=== PATIENT | female | born 1940 | race Caucasian/White ===

== ENCOUNTER 2017-08-04 06:43 | Inpatient (IN) | payer MEDICARE, OTHER ==
[2017-08-07] MEDS ORDERED: Senna TAB PO PRN (17:53)
[2017-08-07] MEDS ORDERED: Magnesium Hydroxide LIQ* 30 ML UDC PO PRN (17:53)
[2017-08-07] MEDS ORDERED: oxyCODONE/Acetamin 5/325 MG* TAB PO PRN (18:16)
[2017-08-07] MEDS: Acetaminophen TAB* 325 MG PO PRN (18:24)
[2017-08-07] MEDS ORDERED: Metoprolol Tartrate TAB* 25 MG PO SCH (19:00)
[2017-08-07] MEDS ORDERED: Diltiazem TAB* 30 MG PO SCH (19:00)
[2017-08-07] MEDS: levETIRAcetam TAB* 500 MG PO SCH (20:09)
[2017-08-07] MEDS: Docusate CAP* 100 MG PO SCH (20:10)
[2017-08-07] MEDS: Rivaroxaban TAB(*) 15 MG PO SCH (20:10)
[2017-08-07] MEDS ORDERED: Diltiazem TAB* 30 MG PO ONE (21:00)
--- NOTE | 2017-08-07 23:02 | HP ---
HISTORY AND PHYSICAL: DATE OF ADMISSION: 08/07/17. REASON FOR ADMISSION: Right total knee replacement. HISTORY OF PRESENT ILLNESS: Aaliyah Walton is a 77-year-old female. She has a medical history significant for secondary progressive multiple sclerosis, diagnosed in the . In addition about 10 years ago, she was diagnosed with Charcot-Paula- Tooth hereditary neuropathy. She uses an AFO for her left leg. She has a history of paroxysmal atrial fibrillation as well as seizure disorder. The patient had ongoing difficulty with her right knee. She had tried and failed conservative treatments. She saw Dr. Adama Fontanez at [place]. It was decided the best course of action would be for her to have a right total knee replacement. She was admitted to [facility] on 01/07. She was taken to the operating room for a right total knee replacement under general anesthesia. A Meléndez catheter was placed. Postoperatively, the patient was started on Lovenox and then later changed back to Xarelto, which she took preop. The patient developed acute mental status changes with atrial fibrillation with the rapid ventricular response. Her heart rate was in the 150s and the patient felt dizzy and lightheaded. Urinalysis was done consistent with pyuria. The patient had a hospitalist consult. She was consulted by Cardiology, was started on Cardizem and metoprolol. She was given three days of IV ceftriaxone, but her urine cultures were negative, so that was stopped. She remains on Cardizem, metoprolol in addition to her Xarelto and amiodarone. It was recommended that the patient have a stress test. The patient, however, refused stating she had just had a stress prior to surgery. Cardiology discussed the issue at length. The patient was felt to be competent and able to refuse the stress test. She can follow up with an outpatient with her call centre supervisor. The patient was felt to have physical therapy and occupational therapy needs. She is now being admitted for inpatient rehab so that she might return to independent living. PAST MEDICAL HISTORY: Includes secondary progressive multiple sclerosis, Iqymbdp-Bsdss-Xmuin hereditary neuropathy, seizure disorder. She has a neurogenic bladder and does straight cath on her own. She has had uterine cancer in the past. She has had a total abdominal hysterectomy and oophorectomy. The patient otherwise has a history of paroxysmal atrial fibrillation as mentioned previously. PAST SURGICAL HISTORY: She has had multiple orthopedic procedures including a left total hip replacement and a left total knee replacement both in 2013. CURRENT MEDICATIONS: Include: 1. Amiodarone. 2. Lipitor. 3. Cardizem. 4. Keppra. 5. Lopressor. 6. Percocet. 7. Xarelto. 8. Effexor. ALLERGIES: The patient has allergies listed to IODINATED CONTRAST as well as MORPHINE. SOCIAL HISTORY: She is a nonsmoker, nondrinker. She lives with her in a two-story house. She has a half bath downstairs and she has a full bath upstairs, her bedroom is upstairs. REVIEW OF SYSTEMS: The patient reports no current shortness of breath or chest pain. PHYSICAL EXAMINATION VITAL SIGNS: The patient's temperature is 98.7, blood pressure is 114/56, pulse 80, respirations 16. HEENT: Her extraocular movements are intact. Tongue is midline. LUNGS: Sound clear to auscultation bilaterally. HEART: Sounds are regular. S1 and S2 are audible. ABDOMEN: Soft and nontender. EXTREMITIES: Her right knee has a wound, which is clean and dry. Some ecchymosis on the back of the right leg. Peripheral pulses are intact. NEUROLOGIC: She is awake, alert, and oriented. She has peripheral weakness in both legs because of her Cianwgm-Ywgck-Csxby worse on the left. Her right quads was also weak from her recent knee surgery. Her functional exam, the patient transfers with mini assist. ASSESSMENT: Right total knee replacement in a patient with premorbid secondary progressive multiple sclerosis. Postoperatively, she developed acute confusion, atrial fibrillation with rapid ventricular response, which responded to beta blockers and Cardizem. She converted spontaneously to normal sinus rhythm. PLAN: Integrate her into a comprehensive and therapeutic rehab program with the following goals: 1. Physical Therapy will work with the patient. They are going to work on functional transfer training, ambulation training with a walker. 2. Occupational Therapy will see the patient, work on her activities of daily living including toileting and toilet transfers. 3. Xarelto for atrial fibrillation as well as DVT prophylaxis. 4. For her atrial fibrillation, we will continue Xarelto as well as amiodarone. In addition for now, we will continue her beta kalli and Cardizem. 5. Adequate analgesia. 6. Her bowels will be regulated. 7. For her neurogenic bladder, she is going to manage it by straight cathing herself. 8. For seizure disorder, we will continue Keppra. 9. Family training as appropriate. 10. emergency services director will be closely involved to make sure that any services and equipment the patient requires are in place prior to discharge. 11. Home with appropriate services. ESTIMATED LENGTH OF STAY: 7 to 10 days. [id number]/[facility] #: [id number] THANG
[2017-08-08] MEDS: Diltiazem TAB* 30 MG PO SCH ×4 (00:59→17:34)
[2017-08-08] MEDS: Metoprolol Tartrate TAB* 25 MG PO SCH ×4 (01:00→17:34)
[2017-08-08] MEDS: Venlafaxine EXT RELEASE CAP* 75 MG PO SCH (08:59)
[2017-08-08] MEDS: levETIRAcetam TAB* 500 MG PO SCH ×2 (08:59→20:10)
[2017-08-08] MEDS: Rivaroxaban TAB(*) 15 MG PO SCH (08:59)
[2017-08-08] MEDS ORDERED: Diltiazem CD CAP* 180 MG PO SCH (09:00)
[2017-08-08] MEDS: Amiodarone TAB* 200 MG PO SCH (09:00)
[2017-08-08] MEDS ORDERED: Diltiazem CD CAP* 120 MG PO SCH (09:00)
[2017-08-08] MEDS: Docusate CAP* 100 MG PO SCH ×2 (09:00→20:18)
[2017-08-08] MEDS: Acetaminophen TAB* 325 MG PO PRN ×2 (11:30→20:10)
--- NOTE | 2017-08-08 12:30 | PMRUTEAM ---
PMRU: Team Meeting Current Status: Nursing: Current Status Skin Deviations [Right Knee] Incision Skin Deviation Description [ drsg intact Right Knee] Bladder Current Status straight cath independently Bowel Current Status bm x3 today.colace held per patient request Nutrition Current Status appetite good Medication Current Status no requests for pain meds thus far this shift. Physical Therapy: Current Status Bed Mobility Assistance Independent Transfer Moblility Assistance Contact guard Ambulation Assistance Contact Guard Ambulation Assistive Devices Rolling Walker 100 feet Stairs Assistance contact guard Stairs Recommended Devices One Rail Number of Stairs 4 Occupational Therapy: Current Status Upper Body Dressing Supervision Lower Body Dressing Min Assist Bathing Min Assist Toileting Contact Guard Assist Toilet Transfer Supervision Shower Transfer Contact Guard Assist Eating Independent Social Work: Current Status Discharge Plan return home with ongoing therapy and family support Potential for Family Training pt's is involved and supportive Anticipated Discharge Home Destination Discharge With family support and continued P.T. Goals: Occupational Therapy: Initial Goals Goals to be Completed in (Days 5 days ) Upper Body Bathing Routine Modified Independent with Lower Body Bathing Routine Modified Independent with Upper Body Dressing Routine Independent Lower Body Dressing Routine Independent Toilet Hygeine and Clothing Modified Independent with Management Routine Toilet Transfer Routine Modified Independent with Tub Transfer Routine Modified Independent with Functional Transfers for ADL Modified Independent with Grooming Routine Independent Feeding Routine Independent Light Housekeeping Tasks Modified Independent with Light Housekeeping Tasks cooking task Assistive Devices Nursing: Goals Bladder Goal independent Bowel Goal independent Nutrition Goal 100% of all meals eaten Medication Goal independent Social Work: Goals Discharge Plan return home with ongoing therapy and family support Potential for Family Training pt's is involved and supportive Anticipated Discharge Home Destination Discharge With family support and continued P.T. Medicine Note: Length of Stay: 1 week Anticipated Discharge Destination: Home Tentative Discharge Date: 7 days Discharged to: home
--- NOTE | 2017-08-08 17:27 | PN ---
Progress Note Date of Service: 08/08/17 Note: REINIER JAMES was visited. Therapy notes read and reviewed. She was discussed in interdisciplinary team rounds. She has some balance difficulties and some problems as a result of decreased sensation in her legs. I verified with the patient that she normally takes Xarelto, 15 mg daily, will revert to this. She is in NSR and will stop the Cardizem, continue Lopressor and Amio. Current Medications: Active Medications Generic Name Dose Route Start Last Admin Trade Name Freq PRN Reason Stop Dose Admin Acetaminophen 650 mg 08/07/17 17:53 08/08/17 11:30 Tylenol Tab* PO 650 mg Q6H PRN Administration FEVER/PAIN Amiodarone HCl 100 mg 08/08/17 09:00 08/08/17 09:00 Cordarone Tab* PO 100 mg DAILY WES Administration Atorvastatin Calcium 10 mg 08/08/17 17:00 Lipitor* PO 1700 WES Diltiazem HCl 30 mg 08/08/17 11:39 08/08/17 12:45 Cardizem Tab* PO 08/09/17 01:00 30 mg 0000,0600,1200,1800 WES Administration Docusate Sodium 100 mg 08/07/17 21:00 08/08/17 09:00 Colace Cap* PO Not Given BID WES Levetiracetam 1,000 mg 08/07/17 21:00 08/08/17 08:59 Keppra Tab* PO 1,000 mg BID WES Administration Magnesium Hydroxide 30 ml 08/07/17 17:53 Milk Of Magnesia Liq* PO Q6H PRN CONSTIPATION Metoprolol Tartrate 12.5 mg 08/08/17 00:10 08/08/17 12:46 Lopressor Tab* PO 12.5 mg 0000,0600,1200,1800 WES Administration Oxycodone/Acetaminophen 1 tab 08/07/17 18:16 Percocet 5/325 Tab* PO Q4H PRN PAIN - MODERATE TO SEVERE Rivaroxaban 15 mg 08/09/17 09:00 Xarelto(*) PO DAILY WES Senna 2 tab 08/07/17 17:53 Senokot Tab* PO BEDTIME PRN CONSTIPATION Venlafaxine HCl 75 mg 08/08/17 09:00 08/08/17 08:59 Effexor Xr Cap* PO 75 mg DAILY WES Administration Vital Signs: Vital Signs Temp Pulse Resp BP Pulse Ox 98.1 F 64 20 103/48 96 08/08/17 15:39 08/08/17 15:39 08/08/17 15:39 08/08/17 15:39 08/08/17 15:39 Exam: LUNGS: Clear bilaterally HEART: reg rhythm ABDOMEN: Soft, + BS EXTREMITIES: right knee dressing C/D/I NEUROLOGIC: Decreased sensation in lower extremities. Decreased PF/DF Assessment/Plan: 1. Right total knee replacement: PT/OT 2. Secondary Progressive MS: Stable 3. Paroxysmal A Fib: In NSR. Xarelto/Amio/Lopressor. EKG in AM. D/C Cardizem 4. DVT Prophylaxis: Xarelto 5. CMT: AFO for left leg 6. Seizures: Keppra 7. Advanced Directives: Full Code 08/08/17 17:27
[2017-08-08] MEDS: Atorvastatin* 10 MG TAB PO SCH (17:34)
[2017-08-09] MEDS: Metoprolol Tartrate TAB* 25 MG PO SCH ×5 (00:01→23:49)
[2017-08-09] MEDS: Diltiazem TAB* 30 MG PO SCH (00:02)
[2017-08-09 06:58] LABS: ABS Basophils 0.1 10^3/ul (0-0.2); ABS Eosinophils 0.2 10^3/ul (0-0.6); ABS Lymphocytes 1.1 10^3/ul (1.0-4.8); ABS Monocytes 0.6 10^3/ul (0-0.8); ABS Neutrophils 3.1 10^3/ul (1.5-7.7); ABS Nucleated RBC 0 10^3/ul; Eosinophil % 3.8 % (0-6); Hematocrit 29 % (35-47); Hemoglobin 9.8 g/dl (12.0-16.0); Lymphocyte % 21.9 % (25-47); Mean Corpuscular HGB Conc 34 g/dl (31-36); Mean Corpuscular Hemoglobin 31 pg (27-31); Mean Corpuscular Volume 91 fL (80-97); Mean Platelet Volume 7.1 um3 (7.4-10.4); Nucleated Red Blood Cells % 0; Platelet Count 358 10^3/ul (150-450); Red Blood Count 3.14 10^6/ul (4.00-5.40); Red Cell Distribution Width 15 % (10.5-15); White Blood Count 5.1 10^3/ul (3.5-10.8)
[2017-08-09 07:17] LABS: EGFR Non-African American 82.1 (>60)
[2017-08-09] MEDS: Docusate CAP* 100 MG PO SCH ×2 (09:09→20:00)
[2017-08-09] MEDS: Amiodarone TAB* 200 MG PO SCH (09:09)
[2017-08-09] MEDS: levETIRAcetam TAB* 500 MG PO SCH ×2 (09:11→20:01)
[2017-08-09] MEDS: Rivaroxaban TAB(*) 15 MG PO SCH (09:13)
[2017-08-09] MEDS: Venlafaxine EXT RELEASE CAP* 75 MG PO SCH (09:13)
[2017-08-09] MEDS: Acetaminophen TAB* 325 MG PO PRN ×2 (10:22→21:43)
[2017-08-09] MEDS: Atorvastatin* 10 MG TAB PO SCH (17:44)
--- NOTE | 2017-08-09 19:35 | PN ---
Progress Note Date of Service: 08/09/17 Note: REINIER JAMES was visited. Therapy notes read and reviewed. OT reported some concerns with memory. Noted she scored 15 on BIMS. Will follow. She says usually pays bills, but she does write for some. She does most of cooking. Labs ok. Current Medications: Active Medications Generic Name Dose Route Start Last Admin Trade Name Freq PRN Reason Stop Dose Admin Acetaminophen 650 mg 08/07/17 17:53 08/09/17 10:22 Tylenol Tab* PO 650 mg Q6H PRN Administration FEVER/PAIN Amiodarone HCl 100 mg 08/08/17 09:00 08/09/17 09:09 Cordarone Tab* PO 100 mg DAILY WES Administration Atorvastatin Calcium 10 mg 08/08/17 17:00 08/09/17 17:44 Lipitor* PO 10 mg 1700 WES Administration Docusate Sodium 100 mg 08/07/17 21:00 08/09/17 09:09 Colace Cap* PO Not Given BID WES Levetiracetam 1,000 mg 08/07/17 21:00 08/09/17 09:11 Keppra Tab* PO 1,000 mg BID WES Administration Magnesium Hydroxide 30 ml 08/07/17 17:53 Milk Of Magnesia Liq* PO Q6H PRN CONSTIPATION Metoprolol Tartrate 12.5 mg 08/08/17 00:10 08/09/17 17:46 Lopressor Tab* PO 12.5 mg 0000,0600,1200,1800 WES Administration Oxycodone/Acetaminophen 1 tab 08/07/17 18:16 Percocet 5/325 Tab* PO Q4H PRN PAIN - MODERATE TO SEVERE Rivaroxaban 15 mg 08/09/17 09:00 08/09/17 09:13 Xarelto(*) PO 15 mg DAILY WES Administration Senna 2 tab 08/07/17 17:53 Senokot Tab* PO BEDTIME PRN CONSTIPATION Venlafaxine HCl 75 mg 08/08/17 09:00 08/09/17 09:13 Effexor Xr Cap* PO 75 mg DAILY WES Administration Vital Signs: Vital Signs Temp Pulse Resp BP Pulse Ox 99.7 F 86 22 118/61 97 08/09/17 16:36 08/09/17 16:36 08/09/17 16:36 08/09/17 16:36 08/09/17 19:15 Lab Results: Laboratory Results - last 24 hr 08/09/17 08/09/17 06:41 06:41 WBC 5.1 RBC 3.14 L Hgb 9.8 L Hct 29 L MCV 91 MCH 31 MCHC 34 RDW 15 Plt Count 358 MPV 7.1 L Neut % (Auto) 61.2 Lymph % (Auto) 21.9 L [place] % (Auto) 11.9 H Eos % (Auto) 3.8 Baso % (Auto) 1.2 Absolute Neuts (auto) 3.1 Absolute Lymphs (auto) 1.1 Absolute Monos (auto) 0.6 Absolute Eos (auto) 0.2 Absolute Basos (auto) 0.1 Absolute Nucleated RBC 0 Nucleated RBC % 0 Sodium 140 Potassium 4.0 Chloride 106 Carbon Dioxide 28 Anion Gap 6 BUN 19 Creatinine 0.69 Est GFR ( Amer) 105.5 Est GFR (Non-Af Amer) 82.1 BUN/Creatinine Ratio 27.5 H Glucose 106 H Calcium 8.9 Total Bilirubin 0.60 AST 24 ALT 30 Alkaline Phosphatase 99 Total Protein 6.0 L Albumin 3.2 Globulin 2.8 Albumin/Globulin Ratio 1.1 Exam: LUNGS: Clear bilaterally HEART: reg rhythm ABDOMEN: Soft, + BS EXTREMITIES: right knee dressing C/D/I NEUROLOGIC: Decreased sensation in lower extremities. Decreased PF/DF Assessment/Plan: 1. Right total knee replacement: PT/OT 2. Secondary Progressive MS: Stable 3. Paroxysmal A Fib: In NSR. Xarelto/Amio/Lopressor. EKG showed reg rhythm 4. DVT Prophylaxis: Xarelto 5. CMT: AFO for left leg 6. Seizures: Keppra 7. Advanced Directives: Full Code 08/09/17 19:35
[2017-08-10] MEDS: Metoprolol Tartrate TAB* 25 MG PO SCH ×3 (05:59→16:49)
[2017-08-10] MEDS: Amiodarone TAB* 200 MG PO SCH (09:08)
[2017-08-10] MEDS: Rivaroxaban TAB(*) 15 MG PO SCH (09:10)
[2017-08-10] MEDS: levETIRAcetam TAB* 500 MG PO SCH ×2 (09:10→19:37)
[2017-08-10] MEDS: Venlafaxine EXT RELEASE CAP* 75 MG PO SCH (09:11)
[2017-08-10] MEDS: Acetaminophen TAB* 325 MG PO PRN ×2 (09:12→19:36)
[2017-08-10] MEDS: Docusate CAP* 100 MG PO SCH ×2 (09:13→19:37)
--- NOTE | 2017-08-10 15:44 | PN ---
Progress Note Date of Service: 08/10/17 Note: REINIER JAMES was visited. Therapy notes read and reviewed. Some back pain earlier, but doing better now. Moving fairly well. Current Medications: Active Medications Generic Name Dose Route Start Last Admin Trade Name Freq PRN Reason Stop Dose Admin Acetaminophen 650 mg 08/07/17 17:53 08/10/17 09:12 Tylenol Tab* PO 650 mg Q6H PRN Administration FEVER/PAIN Amiodarone HCl 100 mg 08/08/17 09:00 08/10/17 09:08 Cordarone Tab* PO 100 mg DAILY WES Administration Atorvastatin Calcium 10 mg 08/08/17 17:00 08/09/17 17:44 Lipitor* PO 10 mg 1700 WES Administration Docusate Sodium 100 mg 08/07/17 21:00 08/10/17 09:13 Colace Cap* PO Not Given BID WES Levetiracetam 1,000 mg 08/07/17 21:00 08/10/17 09:10 Keppra Tab* PO 1,000 mg BID WES Administration Magnesium Hydroxide 30 ml 08/07/17 17:53 Milk Of Magnesia Liq* PO Q6H PRN CONSTIPATION Metoprolol Tartrate 12.5 mg 08/08/17 00:10 08/10/17 12:38 Lopressor Tab* PO 12.5 mg 0000,0600,1200,1800 WES Administration Oxycodone/Acetaminophen 1 tab 08/07/17 18:16 Percocet 5/325 Tab* PO Q4H PRN PAIN - MODERATE TO SEVERE Rivaroxaban 15 mg 08/09/17 09:00 08/10/17 09:10 Xarelto(*) PO 15 mg DAILY WES Administration Senna 2 tab 08/07/17 17:53 Senokot Tab* PO BEDTIME PRN CONSTIPATION Venlafaxine HCl 75 mg 08/08/17 09:00 08/10/17 09:11 Effexor Xr Cap* PO 75 mg DAILY WES Administration Vital Signs: Vital Signs Temp Pulse Resp BP Pulse Ox 99.6 F 67 20 107/69 97 08/10/17 05:50 08/10/17 05:50 08/10/17 05:50 08/10/17 05:50 08/10/17 05:50 Exam: LUNGS: Clear bilaterally HEART: reg rhythm ABDOMEN: Soft, + BS EXTREMITIES: right knee dressing C/D/I NEUROLOGIC: Decreased sensation in lower extremities. Decreased PF/DF Assessment/Plan: 1. Right total knee replacement: PT/OT 2. Secondary Progressive MS: Stable 3. Paroxysmal A Fib: In NSR. Xarelto/Amio/Lopressor. EKG showed reg rhythm 4. DVT Prophylaxis: Xarelto 5. CMT: AFO for left leg 6. Seizures: Keppra 7. Advanced Directives: Full Code 08/10/17 15:45
[2017-08-10] MEDS: Atorvastatin* 10 MG TAB PO SCH (16:49)
[2017-08-11] MEDS: Metoprolol Tartrate TAB* 25 MG PO SCH ×4 (00:16→17:48)
[2017-08-11] MEDS: Docusate CAP* 100 MG PO SCH ×2 (09:28→20:27)
[2017-08-11] MEDS: levETIRAcetam TAB* 500 MG PO SCH ×2 (09:28→20:27)
[2017-08-11] MEDS: Rivaroxaban TAB(*) 15 MG PO SCH (09:28)
[2017-08-11] MEDS: Venlafaxine EXT RELEASE CAP* 75 MG PO SCH (09:28)
[2017-08-11] MEDS: Amiodarone TAB* 200 MG PO SCH (09:28)
[2017-08-11] MEDS: Acetaminophen TAB* 325 MG PO PRN (10:22)
--- NOTE | 2017-08-11 16:47 | PN ---
Progress Note Date of Service: 08/11/17 Note: REINIER JAMES was visited. Therapy notes read and reviewed. She was observed ambulating and somewhat unsteady. I suspect she is slightly unsteady at baseline. Current Medications: Active Medications Generic Name Dose Route Start Last Admin Trade Name Freq PRN Reason Stop Dose Admin Acetaminophen 650 mg 08/07/17 17:53 08/11/17 10:22 Tylenol Tab* PO 650 mg Q6H PRN Administration FEVER/PAIN Amiodarone HCl 100 mg 08/08/17 09:00 08/11/17 09:28 Cordarone Tab* PO 100 mg DAILY WES Administration Atorvastatin Calcium 10 mg 08/08/17 17:00 08/10/17 16:49 Lipitor* PO 10 mg 1700 WES Administration Docusate Sodium 100 mg 08/07/17 21:00 08/11/17 09:28 Colace Cap* PO 100 mg BID WES Administration Levetiracetam 1,000 mg 08/07/17 21:00 08/11/17 09:28 Keppra Tab* PO 1,000 mg BID WES Administration Magnesium Hydroxide 30 ml 08/07/17 17:53 Milk Of Magnesia Liq* PO Q6H PRN CONSTIPATION Metoprolol Tartrate 12.5 mg 08/08/17 00:10 08/11/17 12:45 Lopressor Tab* PO 12.5 mg 0000,0600,1200,1800 WES Administration Oxycodone/Acetaminophen 1 tab 08/07/17 18:16 Percocet 5/325 Tab* PO Q4H PRN PAIN - MODERATE TO SEVERE Rivaroxaban 15 mg 08/09/17 09:00 08/11/17 09:28 Xarelto(*) PO 15 mg DAILY WES Administration Senna 2 tab 08/07/17 17:53 Senokot Tab* PO BEDTIME PRN CONSTIPATION Venlafaxine HCl 75 mg 08/08/17 09:00 08/11/17 09:28 Effexor Xr Cap* PO 75 mg DAILY WES Administration Vital Signs: Vital Signs Temp Pulse Resp BP Pulse Ox 98.4 F 65 20 119/60 95 08/11/17 16:12 08/11/17 16:12 08/11/17 16:12 08/11/17 16:12 08/11/17 16:12 Exam: LUNGS: Clear bilaterally HEART: reg rhythm ABDOMEN: Soft, + BS EXTREMITIES: right knee dressing C/D/I NEUROLOGIC: Decreased sensation in lower extremities. Decreased PF/DF Assessment/Plan: 1. Right total knee replacement: PT/OT 2. Secondary Progressive MS: Stable 3. Paroxysmal A Fib: In NSR. Xarelto/Amio/Lopressor. EKG showed reg rhythm 4. DVT Prophylaxis: Xarelto 5. CMT: AFO for left leg 6. Seizures: Keppra 7. Advanced Directives: Full Code 08/11/17 16:47
[2017-08-11] MEDS: Atorvastatin* 10 MG TAB PO SCH (17:48)
[2017-08-12] MEDS: Metoprolol Tartrate TAB* 25 MG PO SCH ×4 (00:07→17:38)
[2017-08-12] MEDS: Acetaminophen TAB* 325 MG PO PRN ×2 (08:49→14:45)
[2017-08-12] MEDS: Amiodarone TAB* 200 MG PO SCH (08:58)
[2017-08-12] MEDS: Docusate CAP* 100 MG PO SCH ×2 (08:59→20:29)
[2017-08-12] MEDS: Rivaroxaban TAB(*) 15 MG PO SCH (08:59)
[2017-08-12] MEDS: levETIRAcetam TAB* 500 MG PO SCH ×2 (08:59→20:28)
[2017-08-12] MEDS: Venlafaxine EXT RELEASE CAP* 75 MG PO SCH (09:00)
--- NOTE | 2017-08-12 16:20 | PN ---
Progress Note Date of Service: 08/12/17 Note: REINIER JAMES was visited. Nursing and therapy notes read and reviewed. She thinks she may have flipped into A-fib after doing the stairs. She sat down in a chair and rested and spontaneously converted. Current Medications: Active Medications Generic Name Dose Route Start Last Admin Trade Name Freq PRN Reason Stop Dose Admin Acetaminophen 650 mg 08/07/17 17:53 08/12/17 14:45 Tylenol Tab* PO 650 mg Q6H PRN Administration FEVER/PAIN Amiodarone HCl 100 mg 08/08/17 09:00 08/12/17 08:58 Cordarone Tab* PO 100 mg DAILY WES Administration Atorvastatin Calcium 10 mg 08/08/17 17:00 08/11/17 17:48 Lipitor* PO 10 mg 1700 WES Administration Docusate Sodium 100 mg 08/07/17 21:00 08/12/17 08:59 Colace Cap* PO 100 mg BID WES Administration Levetiracetam 1,000 mg 08/07/17 21:00 08/12/17 08:59 Keppra Tab* PO 1,000 mg BID WES Administration Magnesium Hydroxide 30 ml 08/07/17 17:53 Milk Of Magnesia Liq* PO Q6H PRN CONSTIPATION Metoprolol Tartrate 12.5 mg 08/08/17 00:10 08/12/17 12:50 Lopressor Tab* PO 12.5 mg 0000,0600,1200,1800 WES Administration Oxycodone/Acetaminophen 1 tab 08/07/17 18:16 Percocet 5/325 Tab* PO Q4H PRN PAIN - MODERATE TO SEVERE Rivaroxaban 15 mg 08/09/17 09:00 08/12/17 08:59 Xarelto(*) PO 15 mg DAILY WES Administration Senna 2 tab 08/07/17 17:53 Senokot Tab* PO BEDTIME PRN CONSTIPATION Venlafaxine HCl 75 mg 08/08/17 09:00 08/12/17 09:00 Effexor Xr Cap* PO 75 mg DAILY WES Administration Vital Signs: Vital Signs Temp Pulse Resp BP Pulse Ox 98.5 F 66 16 106/45 96 08/12/17 15:34 08/12/17 15:34 08/12/17 15:34 08/12/17 15:34 08/12/17 15:34 Exam: LUNGS: Clear bilaterally HEART: reg rhythm ABDOMEN: Soft, + BS EXTREMITIES: right knee dressing C/D/I NEUROLOGIC: Decreased sensation in lower extremities. Decreased PF/DF Assessment/Plan: 1. Right total knee replacement: PT/OT 2. Secondary Progressive MS: Stable 3. Paroxysmal A Fib: In NSR. Xarelto/Amio/Lopressor. EKG showed reg rhythm. She refused stress testing at [facility] 4. DVT Prophylaxis: Xarelto 5. CMT: AFO for left leg 6. Seizures: Keppra 7. Advanced Directives: Full Code 08/12/17 16:20
[2017-08-12] MEDS: Atorvastatin* 10 MG TAB PO SCH (17:38)
[2017-08-13] MEDS: Metoprolol Tartrate TAB* 25 MG PO SCH ×4 (01:08→20:12)
[2017-08-13] MEDS: Amiodarone TAB* 200 MG PO SCH (09:28)
[2017-08-13] MEDS: Docusate CAP* 100 MG PO SCH ×2 (09:28→20:06)
[2017-08-13] MEDS: Venlafaxine EXT RELEASE CAP* 75 MG PO SCH (09:29)
[2017-08-13] MEDS: Rivaroxaban TAB(*) 15 MG PO SCH (09:29)
[2017-08-13] MEDS: levETIRAcetam TAB* 500 MG PO SCH ×2 (09:29→20:12)
--- NOTE | 2017-08-13 15:07 | PN ---
Progress Note Date of Service: 08/13/17 Note: REINIER JAMES was visited. Nursing notes read and reviewed. She is ready for discharge in am. No further episodes of palpitations or irregular heart beat. Current Medications: Active Medications Generic Name Dose Route Start Last Admin Trade Name Freq PRN Reason Stop Dose Admin Acetaminophen 650 mg 08/07/17 17:53 08/12/17 14:45 Tylenol Tab* PO 650 mg Q6H PRN Administration FEVER/PAIN Amiodarone HCl 100 mg 08/08/17 09:00 08/13/17 09:28 Cordarone Tab* PO 100 mg DAILY WES Administration Atorvastatin Calcium 10 mg 08/08/17 17:00 08/12/17 17:38 Lipitor* PO 10 mg 1700 WES Administration Docusate Sodium 100 mg 08/07/17 21:00 08/13/17 09:28 Colace Cap* PO 100 mg BID WES Administration Levetiracetam 1,000 mg 08/07/17 21:00 08/13/17 09:29 Keppra Tab* PO 1,000 mg BID WES Administration Magnesium Hydroxide 30 ml 08/07/17 17:53 Milk Of Magnesia Liq* PO Q6H PRN CONSTIPATION Metoprolol Tartrate 25 mg 08/13/17 21:00 Lopressor Tab* PO BID WES Oxycodone/Acetaminophen 1 tab 08/07/17 18:16 Percocet 5/325 Tab* PO Q4H PRN PAIN - MODERATE TO SEVERE Rivaroxaban 15 mg 08/09/17 09:00 08/13/17 09:29 Xarelto(*) PO 15 mg DAILY WES Administration Senna 2 tab 08/07/17 17:53 Senokot Tab* PO BEDTIME PRN CONSTIPATION Venlafaxine HCl 75 mg 08/08/17 09:00 08/13/17 09:29 Effexor Xr Cap* PO 75 mg DAILY WES Administration Vital Signs: Vital Signs Temp Pulse Resp BP Pulse Ox 98.5 F 67 18 124/58 97 08/13/17 06:13 08/13/17 06:13 08/13/17 06:13 08/13/17 06:13 08/13/17 06:13 Exam: LUNGS: Clear bilaterally HEART: reg rhythm ABDOMEN: Soft, + BS EXTREMITIES: right knee dressing C/D/I NEUROLOGIC: Decreased sensation in lower extremities. Decreased PF/DF Assessment/Plan: 1. Right total knee replacement: PT/OT 2. Secondary Progressive MS: Stable 3. Paroxysmal A Fib: In NSR. Xarelto/Amio/Lopressor. EKG showed reg rhythm. She refused stress testing at [facility] 4. DVT Prophylaxis: Xarelto 5. CMT: AFO for left leg 6. Seizures: Keppra 7. Advanced Directives: Full Code 08/13/17 15:08
[2017-08-13] MEDS: Atorvastatin* 10 MG TAB PO SCH (17:23)
[2017-08-14 07:04] VITALS: BP 134/67
[2017-08-14] MEDS: Amiodarone TAB* 200 MG PO SCH (07:41)
[2017-08-14] MEDS: Venlafaxine EXT RELEASE CAP* 75 MG PO SCH (07:41)
[2017-08-14] MEDS: levETIRAcetam TAB* 500 MG PO SCH (07:42)
[2017-08-14] MEDS: Rivaroxaban TAB(*) 15 MG PO SCH (07:42)
[2017-08-14] MEDS: Metoprolol Tartrate TAB* 25 MG PO SCH (07:42)
[2017-08-14] MEDS: Docusate CAP* 100 MG PO SCH (07:45)
--- NOTE | 2017-08-17 09:38 | DS ---
CC: Dr. Lashon Rosa MD * DISCHARGE SUMMARY: DATE OF ADMISSION: 08/07/17 DATE OF DISCHARGE: 08/14/17 DISCHARGE DIAGNOSES: 1. Right total knee replacement. 2. Secondary progressive multiple sclerosis. 3. Oiahbyj-Tkqai-Ccedo hereditary neuropathy. 4. Seizure disorder. 5. Neurogenic bladder. 6. Uterine cancer. 7. Paroxysmal atrial fibrillation. HISTORY OF ILLNESS AND HOSPITAL COURSE: For complete history of the events leading up to her rehab stay, please see the history and physical dictated by me on 08/07/17. While on the rehab unit, the patient remained fairly stable. She did have 1 episode, where she felt she went back into atrial fibrillation, but when the nurse came in, she had converted spontaneously back to normal sinus rhythm. Her Cardizem was discontinued because it was felt not to be needed. She remained on Lopressor. In addition, she was on amiodarone. Her Xarelto dose was adjusted to her home dose of 15 mg once a day. Her wound healed well while on the rehab unit. The patient was able to catheterize herself in order to manage her neurogenic bladder. Otherwise, she was medically stable. The patient was seen by both Physical and Occupational Therapy and made good gains with both disciplines. With physical therapy at the time of admission, the patient required contact guard to a transfer contact guard to ambulate with occupational therapy. At the time of admission, the patient required supervision for upper body dressing, min-assist for lower body dressing, contact guard for toileting, supervision for toilet transfers, min- assist for bathing. By the time of discharge, the patient was independent in transfers, independent ambulating 150 feet, supervision with stairs, independent bathing and dressing, independent toileting and toilet transfers. The patient was discharged home on 08/14/17. DISCHARGE DIET: Regular. DISCHARGE MEDICATIONS: 1. Amiodarone 100 mg daily. 2. Lipitor 10 mg daily. 3. Keppra 1000 mg twice daily. 4. Lopressor 25 mg twice daily. 5. Xarelto 15 mg daily. 6. Effexor XR 75 mg daily. SERVICES AFTER DISCHARGE: [facility] She will have outpatient physical therapy, follow up with Dr. Adama Fontanez on 08/17/17 at 10 :[address] as well [address] Rosa. [id number]/[facility] #: [id number] THANG
== END 2017-08-14 14:27 | disposition home or self-care (01) | DRG 561 ==
LOC: PMRU 08-07 17:28
PROVIDERS: ADMIT Physical Medicine & Rehabilitation; ATTEND Physical Medicine & Rehabilitation
PROC: F07Z5ZZ Bed Mobility Treatment (ICD-10-PCS; principal; 2017-08-07)
PROC: F07Z9ZZ Gait Training/Functional Ambulation Treatment (ICD-10-PCS; 2017-08-07)
PROC: F07Z8ZZ Transfer Training Treatment (ICD-10-PCS; 2017-08-07)
PROC: F08Z0ZZ Bathing/Showering Techniques Treatment (ICD-10-PCS; 2017-08-07)
PROC: F08Z1ZZ Dressing Techniques Treatment (ICD-10-PCS; 2017-08-07)
PROC: F08Z3ZZ Feeding/Eating Treatment (ICD-10-PCS; 2017-08-07)
DX: Z47.1 Aftercare following joint replacement surgery (principal); Z96.651 Presence of right artificial knee joint; G35 Multiple sclerosis; G60.0 Hereditary motor and sensory neuropathy; I48.0 Paroxysmal atrial fibrillation; G40.909 Epilepsy, unspecified, not intractable, without status epilepticus; N31.9 Neuromuscular dysfunction of bladder, unspecified; Z85.42 Personal history of malignant neoplasm of other parts of uterus; Z79.899 Other long term (current) drug therapy; Z88.5 Allergy status to narcotic agent; Z91.041 Radiographic dye allergy status
CPT/HCPCS: 36415; 80053; 85025; 93005; A9270-GY; G0515-GO

== ENCOUNTER 2019-03-16 16:26 | Emergency (ER) | payer MEDICARE, OTHER ==
--- OUTSIDE RECORDS SUMMARY | 2019-03-16 17:03 | XMS REPORT | Summary of Care ---
:1940 Author Organization [facility] Address [address] [place] [address] Care Team Providers Name Role Phone Lashon Rosa MD Primary Care Provider Reason for Visit Reason Comments ED To ED Transfer Fall Encounter Details Date Type Department Care Team Description 03/04/2019 Emergency EMERGENCY DEPARTMENT Ministerio Qiu Urinary tract JENNIFER Guerrero MD infection without [address] hematuria, [place] [address] [place] [address] unspecified (Primary [phone] Dx) Allergies No Known Allergiesdocumented as of this encounter (statuses as of 03/04/2019) Medications Medication Sig Dispensed Refills Start Date End Date Status Venlafaxine HCl ER 75 Take 75 mg by 0 08/02/2018 Active MG Oral Capsule mouth daily Extended Release 24 Hour (EFFEXOR-XR) LEVOTHYROXINE SODIUM Take 1 tablet by 0 Active PO mouth Aspirin Adult Low Take 81 mg by 0 09/07/2018 Active Strength 81 MG Oral mouth daily Tablet Delayed Release Atorvastatin Calcium TAKE ONE TABLET 0 04/27/2016 Active 10 MG Oral Tablet BY MOUTH DAILY (LIPITOR) levETIRAcetam 500 MG TAKE TWO TABLETS 0 11/21/2018 Active Oral Tablet (KEPPRA) BY MOUTH IN THE MORNING AND ONE TABLET IN THE EVENING Levothyroxine Sodium TAKE ONE TABLET 0 12/18/2018 Active 25 MCG Oral Tablet BY MOUTH EVERY (SYNTHROID, MORNING BEFORE LEVOTHROID) BREAKFAST Oxybutynin Chloride 5 TK 1 T PO QHS 0 02/06/2019 Active MG Oral Tablet (DITROPAN) Amiodarone HCl 200 MG Take 200 mg by 0 02/15/2019 Active Oral Tablet mouth daily (PACERONE) levETIRAcetam 500 MG Take 1,000 mg by 0 Active Oral Tablet (KEPPRA) mouth Risedronate Sodium TAKE ONE TABLET 0 02/04/2019 Active 150 MG Oral Tablet BY MOUTH EVERY (ACTONEL) THIRTY DAYS Cephalexin 500 MG Take 1 capsule 14 capsule 0 03/04/2019 03/11/2019 Active Oral Capsule (KEFLEX) by mouth Two Times Daily for 7 days documented as of this encounter (statuses as of 03/04/2019) Active Problems Not on filedocumented as of this encounter (statuses as of 03/04/2019) Social History Tobacco Use Types Packs/Day Years Used Date Former Smoker Alcohol Use Drinks/Week oz/Week Comments Yes Sex Assigned at Date Recorded Not on file Job Start Date Occupation Industry Not on file Not on file Not on file Travel History Travel Start Travel End No recent travel history available. documented as of this encounter Last Filed Vital Signs Vital Sign Reading Time Taken Comments Blood Pressure 137/83 03/04/2019 2:30 AM EST Pulse 63 03/04/2019 2:30 AM EST Temperature 37 03/04/2019 2:30 AM EST C (98.6 F) Respiratory Rate 19 03/04/2019 2:30 AM EST Oxygen Saturation 97% 03/04/2019 2:30 AM EST Inhaled Oxygen Concentration - - Weight 59 kg (130 lb) 03/04/2019 12:20 AM EST Height 172.7 cm (5' 8") 03/04/2019 12:20 AM EST Body Mass Index 19.77 03/04/2019 12:20 AM EST documented in this encounter Discharge Instructions AttachmentsThe following attachments cannot be sent through Care Everywhere.Urinary Tract Infections in Women ([place])documented in this encounter Plan of Treatment Name Type Priority Associated Diagnoses Date/Time EKG 12 lead ECG STAT 03/04/2019 2:08 AM EST documented as of this encounter Procedures Procedure Name Priority Date/Time Associated Comments Diagnosis POCT ISTAT TROPONIN Routine 03/04/2019 2:42 Results for this AM EST procedure are in the results section. EKG ED PHYSICIAN Routine 03/04/2019 2:17 Results for this INTERPRETATION AM EST procedure are in the results section. EKG 12-LEAD - CMAXX 03/04/2019 2:08 REPORT AM EST documented in this encounter Results POCT i-STAT Troponin (03/04/2019 2:42 AM EST) i-STAT Troponin I 0.00 0.00 - 0.08 ng/mL [facility] POC Specimen Whole Blood Performing Organization Address City/[facility] Phone Number POINT OF CARE TEST [address] POC [address] [place] [address] 1ED EKG Interpretation (03/04/2019 2:17 AM EST) Narrative Performed At Ministerio Qiu MD EXTERNAL NON-INTERFACED LAB 03/04/2019 2:18 AM 1ED EKG Interpretation Date/Time: 03/04/2019 2:17 AM Performed by: Ministerio Qiu MD Authorized by: Ministerio Qiu MD ECG reviewed by ED Physician in the absence of a dietetic technician registered: yes Previous ECG: Previous ECG: Unavailable Interpretation: Interpretation: abnormal Rate: ECG rate assessment: normal Rhythm: Rhythm: sinus rhythm Ectopy: Ectopy: none QRS: QRS axis: Normal Conduction: Conduction: normal ST segments: ST segments: Non-specific Other findings: Other findings: prolonged qTc interval Performing Organization Address City/[facility] Phone Number EXTERNAL NON-INTERFACED LAB EKG 12-LEAD - CMAXX REPORT (03/04/2019 2:08 AM EST) Narrative Performed At documented in this encounter Visit Diagnoses Diagnosis Urinary tract infection without hematuria, site unspecified - Primary documented in this encounter
--- OUTSIDE RECORDS SUMMARY | 2019-03-16 17:03 | XMS REPORT | Summary of Care ---
:1940 Author Organization [facility] Address 1 [facility] [place] [address] Care Team Providers Name Role Phone Lashon Rosa Primary Care Provider Reason for Visit Reason Comments Follow Up ED visit from fall Encounter Details Date Type Department Care Team Description 03/12/2019 Office Visit [facility] Shelley, Abnormal CT of brain ( Primary Dx); Ban Oates MD Thrombocytopenia ([facility]); [address] [facility] Paroxysmal atrial fibrillation ([facility]); [place], [place] [id number] [place] [id number] Other specified hypothyroidism; [phone] MS (multiple sclerosis) ([facility]) Allergies Active Allergy Reactions Severity Noted Date Comments Ct Dye Rash 10/06/2009 Iodine Hives 08/17/2009 Morphine GI Reaction 11/30/2011 documented as of this encounter (statuses as of 03/12/2019) Medications Medication Sig Dispensed Refills Start Date End Date Status levetiracetam (KEPPRA) Take 500 mg by 0 Active 500 MG Oral mouth TWICE TabIndications: 1tab in DAILY. am 2tab in pm Indications: 1tab in am 2tab in pm amiodarone (PACERONE, Take 200 mg by 0 Active CORDARONE) 200 MG Oral mouth DAILY. Tab acetaminophen (TYLENOL 8 Take by mouth 0 Active HOUR) 650 MG Oral Tab CR EVERY 4-6 HOURS PRN. venlafaxine (EFFEXOR XR) Take 1 Cap by 90 Cap 1 07/24/2017 Active 75 MG Oral CAPSULE SR 24 mouth DAILY. HRIndications: Other depression metoprolol (LOPRESSOR) Take 0.5 Tabs by 60 Tab 0 08/07/2017 Active 25 MG Oral Tab mouth EVERY SIX HOURS. Additional information Patient taking differently: 12.5 mg Oral BID, Reported on 06/05/2018 11:07 AM Multiple Vitamins-Minerals Take by mouth 0 Active (PRESERVISION AREDS PO) DAILY. Methotrexate 2.5 MG Oral Take 2.5 mg by 0 Active TabIndications: 3tabs mouth EVERY 7 DAYS. Indications: 3tabs ranolazine (RANEXA) 500 MG Take 500 mg by 0 Active Oral TABLET SR 12 HR mouth TWICE DAILY. atorvastatin (LIPITOR) 10 TAKE ONE 90 Tab 1 11/09/19 Active MG Oral Tab TABLET BY 19 MOUTH DAILY Trospium Chloride 20 MG TAKE ONE 90 Tab 1 11/09/19 Active Oral TabIndications: TABLET BY 19 Neurogenic bladder MOUTH DAILY levothyroxine (SYNTHROID) Take 1 Tab by 30 Tab 2 01/01/20 Active 50 MCG Oral Tab mouth BEFORE 19 BREAKFAST. Risedronate Sodium 150 MG TAKE ONE 3 Tab 1 02/01/20 Active Oral TabIndications: TABLET BY 19 Osteopenia, unspecified MOUTH EVERY location THIRTY DAYS foliC acid 1 MG Oral Tab TAKE ONE 90 Tab 1 02/25/19 Active TABLET BY 20 MOUTH EVERY DAY apixaban (ELIQUIS) 2.5 MG Take 2.5 mg by 0 03/12/19 Discontinued (Other ) Oral Tab mouth TWICE 20 DAILY. levothyroxine (SYNTHROID) Take 1 Tab by 90 Tab 1 01/01/20 03/12/19 Discontinued 50 MCG Oral Tab mouth BEFORE 20 (Duplicate Order) BREAKFAST. documented as of this encounter (statuses as of 03/12/2019) Active Problems Problem Noted Date Thrombocytopenia 06/05/2018 Hyperlipidemia 09/07/2016 Arthralgia of right knee 09/01/2016 Paroxysmal atrial fibrillation 06/15/2016 Obstructive sleep apnea syndrome 03/07/2016 H/O total hip arthroplasty 04/25/2014 S/P total hip arthroplasty 01/30/2014 Osteoarthrosis, unspecified whether generalized or localized, pelvic 2013 region and thigh Hip pain, left 11/22/2013 Status post total right knee replacement 10/24/2013 S/P total knee arthroplasty 08/22/2013 Primary osteoarthritis of right knee 06/24/2013 Knee pain, left 06/07/2013 Stress incontinence, female 11/01/2011 Grade 1 endometrial cancer with minimal myometial invasion. 10/14/2009 Overview: Grade 1 endometrial cancer with minimal invasion resected 10/06/2009 by total abdominal hysterectomy & bilateral salpingo oophorectomy with upper vaginectomy. Depression 08/17/2009 Multiple sclerosis 08/17/2009 Gpmdyvt-Zfwoy-Sfrjj disease 08/17/2009 Overview: Replaced inactive diagnosis Osteopenia 08/17/2009 Seizure disorder 08/17/2009 Overview: Dr. Montilla, [facility], last episode - many years ago Neurogenic bladder documented as of this encounter (statuses as of 03/12/2019) Resolved Problems Problem Noted Date Resolved Date Endometrial polyp 09/02/2009 02/23/2010 Bladder disorder 08/17/2009 08/17/2009 Peripheral neuropathy 08/17/2009 08/17/2009 Seizure disorder 08/17/2009 08/17/2009 documented as of this encounter (statuses as of 03/12/2019) Immunizations Name Administration Dates Next Due Influenza (IM) Preservative Free 12/02/2014, 12/03/2013, 12/04/2012 Influenza Vaccine High Dose 11/28/2016 Influenza Vaccine Whole 12/02/2015, 12/02/2015 Pneumococcal Conjugate Vaccine 12/02/2015, 10/04/2006 Pneumococcal Conjugate(13 Valent) 12/02/2015, 01/21/2015 TDAP Vaccine 04/18/2016 ZOSTER (ZOSTAVAX) VACCINE 10/04/2008 documented as of this encounter Social History Tobacco Use Types Packs/Day Years Used Date Former Smoker Cigarettes 15 Smokeless Tobacco: Never Used Comments: Quit 30 years ago Alcohol Use Drinks/Week oz/Week Comments Yes 1 Glasses of wine 1.0 ocCAS Sex Assigned at Date Recorded Not on file Job Start Date Occupation Industry Not on file Not on file Not on file Travel History Travel Start Travel End No recent travel history available. documented as of this encounter Last Filed Vital Signs Vital Sign Reading Time Taken Comments Blood Pressure 112/78 03/12/2019 2:03 PM EST Pulse 67 03/12/2019 2:03 PM EST Temperature 36.4 03/12/2019 2:03 PM C (97.6 EST F) Respiratory Rate - - Oxygen Saturation 97% 03/12/2019 2:03 PM EST Inhaled Oxygen Concentration - - Weight 59.7 kg (131 lb 11.2 oz) 03/12/2019 2:03 PM EST Height 175.3 cm (5' 9") 03/12/2019 2:03 PM EST Body Mass Index 19.45 03/12/2019 2:03 PM EST documented in this encounter Progress Notes Lashon Rosa MD - 03/12/2019 2:00 PM EST Patient: Aaliyah Walton Date of Service: 03/12/2019 Subjective: Aaliyah Walton is a 79-y.o. female who presents for Chief Complaint Patient presents with Follow Up ED visit from fall Patient comes follow up evaluation at [facility] ER Patient has history of MS with bilateral leg weakness and imbalance. Fell at home on the day of evaluation: los her balance. Landed backwards. No LOC. Evaluation at the ER showed: CT scan of the brain - diffuse periventricular white matter changes, diffuse microvascular changes, R frontal subcortical area of encephalomalacia unchanged from 11/2018 Patient was transferred to [facility] due to the concerns off stroke vs MS flare up. Evaluation at [facility] was at baseline. So se was discharged home. Patient also was found to have UTI with positive Urine culture for E coli Was treated with Keflex Today she feels t her baseline. No headache. Continues to have bilateral legs weakness. Ambulates with walker Past Medical History: Diagnosis Date Blcfxoe-Fnfqn-Arljf 08/17/2009 mostly legs Depression 08/17/2009 Fractures GERD (gastroesophageal reflux disease) Hyperlipidemia 09/07/2016 MS (multiple sclerosis) ([facility]) Neurogenic bladder Osteoarthritis Osteopenia 08/17/2009 Paroxysmal atrial fibrillation ([facility]) 06/15/2016 Seizure disorder ([facility]) 08/17/2009 Dr. Montilla, [facility], last episode - many years ago Thrombocytopenia ([facility]) 06/05/2018 Urinary incontinence stress incontinence and also some urge incontinence Uterine cancer ([facility]) Grade 1 endometrial cancer with minimal invasion resected 10/06/2009 by total abdominal hysterectomy& bilateral salpingo oophorectomy with upper vaginectomy. Outpatient Medications as of 03/12/2019 Medication Sig Dispense Refill acetaminophen (TYLENOL 8 HOUR) 650 MG Oral Tab CR Take by mouth EVERY 4- 6 HOURS PRN. amiodarone (PACERONE, CORDARONE) 200 MG Oral Tab Take 200 mg by mouth DAILY. atorvastatin (LIPITOR) 10 MG Oral Tab TAKE ONE TABLET BY MOUTH DAILY 90 Tab 1 foliC acid 1 MG Oral Tab TAKE ONE TABLET BY MOUTH EVERY DAY 90 Tab 1 levetiracetam (KEPPRA) 500 MG Oral Tab Take 500 mg by mouth TWICE DAILY. Indications: 1tab louis 2tab in pm levothyroxine (SYNTHROID) 50 MCG Oral Tab Take 1 Tab by mouth BEFORE BREAKFAST. 30 Tab 2 Methotrexate 2.5 MG Oral Tab Take 2.5 mg by mouth EVERY 7 DAYS. Indications: 3tabs metoprolol (LOPRESSOR) 25 MG Oral Tab Take 0.5 Tabs by mouth EVERY SIX HOURS. (Patient takingdifferently: Take 12.5 mg by mouth TWICE DAILY.) 60 Tab 0 Multiple Vitamins-Minerals (PRESERVISION AREDS PO) Take by mouth DAILY. ranolazine (RANEXA) 500 MG Oral TABLET SR 12 HR Take 500 mg by mouth TWICE DAILY. Risedronate Sodium 150 MG Oral Tab TAKE ONE TABLET BY MOUTH EVERY THIRTY DAYS 3 Tab 1 Trospium Chloride 20 MG Oral Tab TAKE ONE TABLET BY MOUTH DAILY 90 Tab 1 venlafaxine (EFFEXOR XR) 75 MG Oral CAPSULE SR 24 HR Take 1 Cap by mouth DAILY. 90 Cap 1 No current facility-administered medications on file as of 03/12/2019. Allergies Allergen Reactions Dye [Ct Dye] Rash Iodine Hives Morphine GI Reaction Review of Systems: All remaining review of systems was negative. Objective: BP 112/78 (BP Location: Right arm, Patient Position: Sitting) Pulse 67 Temp 97.6 F (36.4 C) (Tympanic) Ht 5' 9" (1.753 m) Wt 131 lb 11.2 oz (59.7 kg) SpO2 97% BMI 19.45 kg/m2 GENERAL: alert, no distress THROAT: lips, mucosa, and tongue normal: teeth and gums normal NECK: supple, symmetrical, trachea midline and no adenopathy LUNGS: clear to auscultation bilaterally HEART: regular rate and rhythm, S1, S2 normal, no murmur, click, rub or gallop ICD-9-CM ICD-10-CM 1. Abnormal CT of brain Concerns about CVA ( changes since 12/08?) Will request reevaluation with her neurologist 793.0 R90.89 2. Thrombocytopenia (HCC) 287.5 D69.6 CBC WITH DIFFERENTIAL 3. Paroxysmal atrial fibrillation (HCC) 427.31 I48.0 COMPREHENSIVE METABOLIC PANEL 4. Other specified hypothyroidism 244.8 E03.8 THYROID STIMULATING HORMONE FREE T4 5. MS (multiple sclerosis) (HCC) 340 G35 Author: Lashon Rosa MD documented in this encounter Plan of Treatment Name Type Priority Associated Diagnoses Date/Time THYROID STIMULATING Lab Routine Other specified 03/12/2019 2:41 PM HORMONE hypothyroidism EST FREE T4 Lab Routine Other specified 03/12/2019 2:41 PM hypothyroidism EST Health Maintenance Due Date Last Done Comments PNEUMOCOCCAL 65+YRS (2 of 2 12/01/2016 12/02/2015, 12/02/2015, - PPSV23) 01/21/2015, Additional history exists INFLUENZA VACCINE (#1) 2018 11/28/2016, 12/02/2015, 12/02/2014, Additional history exists DEPRESSION SCREENING 06/06/2019 06/05/2018, 06/05/2018 FALL RISK ASSESSMENT 06/06/2019 06/05/2018, 06/05/2018 HIV SCREENING 06/06/2019 Postponed from 1953 (Patient refused) MEDICARE ANNUAL WELLNESS 06/06/2019 06/05/2018, 11/28/2016, VISIT 01/21/2015, Additional history exists ZOSTER IMMUNIZATION SERIES 03/12/2020 10/04/2008 Postponed from (2 of 3) 11/29/2008 (Vaccine not available) LIPID DISORDER SCREENING 11/09/2023 11/08/2018, 03/15/2017, 08/31/2016, Additional history exists DTaP/Tdap/Td Vaccines (2 - 04/18/2026 04/18/2016 Tdap) HEPATITIS A IMMUNIZATION Aged Out No longer eligible SERIES based on patient's age to complete this topic HPV IMMUNIZATION SERIES Aged Out No longer eligible based on patient's age to complete this topic MENINGOCOCCAL VACCINE IMM Aged Out No longer eligible based on patient's age to complete this topic documented as of this encounter Goals Goal Patient Goal Associated Recent Patient-Stated? Author Type Problems Progress Depression Depression 2 (06/05/2018 No Shelley, screen (PHQ-9) 11:03 AM EDT) Lashon, total score < 5 Note: This is an individualized treatment (depression) goal for Aaliyah Walton: Displayed above is your goal for a depression screening (PHQ-9) score that would indicate good control of your depression. Keep a regular sleep schedule Lifestyle No Lashon Rosa MD Note: This is an individualized lifestyle goal for Aaliyah Walton: Please maintain a regular sleep schedule. This may help with some symptoms of depression. Take all prescribed medications as Self-management No Lashon Rosa MD directed Note: This is an individualized self-management goal for Aaliyah Walton: Please take all prescribed medications as directed. 1. Do not skip doses. If you cannot afford your medications, talk with your doctor. 2. Use a pill reminder system such as a pill box if needed. Your pharmacist can help you with this. 3. Contact your Pharmacy 5 days before your medication runs out. If you cannot take your medications for any reasons, talk with your doctor. 4. Please bring all of your medication bottles and inhalers (or a list of all your medications/inhalers) with you to every visit. Potential barriers to meeting all of your care plan goals will continue to be addressed on an ongoing basis. documented as of this encounter Implants Implanted Type Area Hr Representative Device Shelf Expiration Model / Identifier Date Serial / Lot Keagan Tot Vagina [employer] [id number] / Implanted: Qty: 1 on 12/08/2011 at [facility] / [id number] Description:[id number] Durasphere Urethra [employer] [id number] / Implanted: Qty: 3 on 04/12/2012 at [facility] / [id number] Description:[id number] Smart Set Bone Cement W/ Gentimy - [id number] Left: Knee DEPUY 2014 [id number] / Implanted: Qty: 1 on 07/10/2013 by Adama Fontanez MD at [facility] / [id number] Smart Set Cement - [id number] Left: Knee DEPUY 10/10/2014 [id number] / Implanted: Qty: 1 on 07/10/2013 by Adama Fontanez MD at [facility] / [id number] Persona Femur Left Size 7 Left: Knee NONI RUIZ [id number] 10/20/2022 [id number] / Implanted: Qty: 1 on 07/10/2013 by Adama Fontanez MD at [facility] [id number] / [id number] Patella, 32mm Nexgen - [id number] Left: Knee NONICHAGO RUIZ 03/12/2021 / Implanted: Qty: 1 on 07/10/2013 by Adama Fontanez MD at [facility] / [id number] Persona 5 Degree Tibia Lft Size E Left: Knee NONI RUIZ [id number] / Implanted: Qty: 1 on 07/10/2013 by Adama Fontanez MD at [facility] [id number] / [id number] Persona Articular Surface Left 10mm Height Left: Knee NONI RUIZ [id number] 12/20/2020 [id number] / Implanted: Qty: 1 on 07/10/2013 by Adama Fontanez MD at [facility] [id number] / [id number] Regenerex[employer] Hole Cup Size 52 - [id number] Left: Hip BIOMET 02/2023 [id number] / Implanted: Qty: 1 on 01/08/2014 by Adama Fontanez MD at [facility] / [id number] Taperloc Complete Fem Stem - So Sz 12 - [id number] Left: Hip BIOMET 09/20 [id number] / Implanted: Qty: 1 on 01/08/2014 by Adama Fontanez MD at [facility] / [id number] 36mm Femoral Head Size -3 - [id number] Left: Hip BIOMET 07/22/2023 [id number]- [id number] / Implanted: Qty: 1 on 01/08/2014 by Adama Fontanez MD at [facility] / [id number] Neutral Arcomxl Liner - 36e - [id number] Left: Hip BIOMET 08/08/2018 [id number] / Implanted: Qty: 1 on 01/08/2014 by Adama Fontanez MD at [facility] / [id number] Persona Femur Ps Std Sz28 R - [id number] Right: Knee NONI JOSEPH 03/22 [id number] / Implanted: Qty: 1 on 07/31/2017 by Adama Fontanez MD at [facility] / [id number] Persona Tibal Stem 5 Deg Sz E R - [id number] Right: Knee NONI JOSEPH 02/19/2027 [id number] / Implanted: Qty: 1 on 07/31/2017 by Adama Fontanez MD at [facility] / [id number] Smart Set Cement - [id number] Right: Knee DEPUY 05/19/2018 [id number] / Implanted: Qty: 1 on 07/31/2017 by Adama Fontanez MD at [facility] / [id number] Smart Set Bone Cement W/ Gentimy - [id number] Right: Knee DEPUY 2018 [id number] / Implanted: Qty: 1 on 07/31/2017 by Adama Fontanez MD at [facility] / [id number] Art Surface Ps 10mm R 6-9ef - [id number] Right: Knee NONI JOSEPH 12/20 [id number] / Implanted: Qty: 1 on 07/31/2017 by Adama Fontanez MD at [facility] / [id number] documented as of this encounter Procedures Procedure Name Priority Date/Time Associated Diagnosis Comments CBC WITH DIFFERENTIAL Routine 03/12/2019 2:41 Thrombocytopenia (HCC) Results for this PM EST procedure are in the results section. COMPREHENSIVE Routine 03/12/2019 2:41 Paroxysmal atrial Results for this METABOLIC PANEL PM EST fibrillation (HCC) procedure are in the results section. documented in this encounter Results COMPREHENSIVE METABOLIC PANEL (03/12/2019 2:41 PM EST) Sodium 137 134 - 145 mmol/L [facility] Potassium 3.9 3.5 - 5.1 mmol/L [facility] Chloride 102 98 - 107 mmol/L [facility] CO2 27 22 - 30 mmol/L [facility] Calcium 9.1 8.3 - 10.1 mg/dl [facility] Albumin 4.0 3.5 - 5.0 g/dl [facility] BUN 21 (H) 7 - 17 mg/dl [facility] Creatinine 0.8 0.7 - 1.2 mg/dl [facility] Glucose 93 70 - 99 mg/dl [facility] Total Protein 6.8 6.3 - 8.2 g/dl [facility] Total Bilirubin 0.5 0.0 - 1.1 MG/DL [facility] AST 29 15 - 46 U/L [facility] ALT 34 9 - 52 U/L [facility] Alkaline 69 40 - 150 U/L [facility] eGFR >60 See Interpretation [facility] Comment: Below ml/min/1.73ml GROUP Estimated GFR Interpretation: Sq LABORATORY Above 60ml/min/1.73m2 = Normal Renal Function 30-59 ml/min/1.73m2 = Stage 3 Chronic Kidney Disease 15-29 ml/min/1.73m2 = Stage 4 Chronic Kidney Disease Less than 15 ml/min/1.73m2 = Stage 5 Chronic Kidney Disease The GFR value is calculated using the Modification of Diet in Renal Disease ( MDRD) Study Equation which can be found at: https://www.kidney.org/content/rzuy-jdkkc-lnoaojey BUN/Creatinine 26 (H) 6 - 22 RATIO [facility] LABORATORY Anion Gap 8 3 - 11 mmol/L [facility] A/G Ratio 1.4 0.8 - 2.0 ratio [facility] Specimen Blood - Blood specimen (specimen) Performing Organization Address City/State/Zipcode Phone Number [facility] [address] [facility] [place] [address] [phone] CBC WITH DIFFERENTIAL (03/12/2019 2:41 PM EST) WBC Count 4.82 3.98 - 10.04 [facility] K/uL LABORATORY RBC Count 3.93 3.93 - 5.22 M/UL [facility] Hemoglobin 12.8 11.2 - 15.7 g/dL [facility] Hematocrit 39.8 34.1 - 44.9 % [facility] MCV 101.3 (H) 79.4 - 94.8 FL [facility] MCH 32.6 (H) 25.6 - 32.2 PG [facility] MCHC 32.2 32.2 - 35.5 g/dL [facility] Platelet Count 238 182 - 369 K/uL [facility] MPV 10.3 9.4 - 12.3 FL [facility] RDW 13.7 11.7 - 14.4 % [facility] Neutrophil % 64.2 34.0 - 71.1 % [facility] Lymphocyte % 22.0 19.3 - 51.7 % [facility] Monocyte % 11.8 4.7 - 12.5 % [facility] Eosinophil % 1.2 0.7 - 5.8 % [facility] Basophil % 0.6 0.1 - 1.2 % [facility] nRBC % 0.0 0.0 - 0.2 % [facility] Neutrophil # 3.09 1.56 - 6.13 K/UL [facility] Lymphocyte # 1.06 (L) 1.18 - 3.74 K/UL [facility] Monocyte # 0.57 0.24 - 0.86 K/UL [facility] Eosinophil # 0.06 0.04 - 0.36 K/UL [facility] Basophil # 0.03 0.01 - 0.08 K/UL [facility] Immature Gran % 0.2 0.0 - 0.4 % [facility] Immature Gran # 0.01 0.00 - 0.03 K/uL [facility] NRBC # 0.00 0.00 - 0.12 K/uL [facility] Specimen Blood - Blood specimen (specimen) Performing Organization Address City/State/Zipcode Phone Number [facility] [address] [place] [address] [phone] documented in this encounter Visit Diagnoses Diagnosis Thrombocytopenia (HCC) Thrombocytopenia, unspecified Paroxysmal atrial fibrillation (HCC) Atrial fibrillation Other specified hypothyroidism MS (multiple sclerosis) (HCC) Multiple sclerosis Abnormal CT of brain Nonspecific (abnormal) findings on radiological and other examination of skull and head documented in this encounter Insurance Payer Benefit Plan / Subscriber ID Effective Dates Phone Address Type Group MEDICARE MEDICARE PART A xxxxxxxxxxx 1997-Present Medicare & B LIFETIME LIFETIME BENEFIT xxxxxxxxxxxx 2014-Present [employer] Name Account Type Relation to Date of Phone Billing Patient Address Aaliyah Walton V Personal/Family 1940 [id number] (Home) [facility] [phone] [place], [place] (Work) [id number] documented as of this encounter
[2019-03-16 17:34] VITALS: BP 160/99
--- NOTE | 2019-03-16 17:37 | UC ---
Complaint Female HPI - History Of Current Complaint Stated Complaint: URINARY Time Seen by Provider: 03/16/19 17:07 Pain Intensity: 0 - Allergies/Home Medications Allergies/Adverse Reactions: Allergies Allergy/AdvReac Type Severity Reaction Status Date / Time Iodinated Contrast Media Allergy Hives Verified 03/16/19 17:06 [Iodinated Contrast- Oral and IV Dye] iohexol [From Omnipaque] Allergy Hives/Diff. Verified 03/16/19 17:06 Breathing/I tching morphine Allergy Nausea And Verified 03/16/19 17:06 Vomiting Home Medications: Home Medications Folic Acid TAB* [Folvite TAB*] 1 mg PO DAILY 03/16/19 [History Confirmed ] Levothyroxine TAB* [Synthroid TAB*] 50 mcg PO DAILY 03/16/19 [History Confirmed 03/16/19] Methotrexate TAB* 2.5 mg PO Q7D 03/16/19 [History Confirmed 03/16/19] Ranolazine (NF) [Ranexa (NF)] 500 mg PO BID 03/16/19 [History Confirmed 03/16/19 ] Risedronate Sodium 150 mg PO MONTHLY 03/16/19 [History Confirmed 03/16/19] Trospium (NF) [Sanctura (NF)] 20 mg PO DAILY 03/16/19 [History Confirmed ] Vit C/E/Zn/Coppr/Lutein/Zeaxan [Preservision Areds 2 Softgel] 1 each PO [History] levETIRAcetam TAB* [Keppra TAB*] 1,000 mg PO DAILY 03/16/19 [History Confirmed 03/16/19] PMH/Surg Hx/FS Hx/Imm Hx - Surgical History Surgical History: Yes Surgery Procedure, Year, and Place: LT KNEE REPLACEMENT;. BILATERAL CATARACTS 2010;. TOTAL HYSTERECTOMY;. LEFT HIP REPLACEMENT 2012;. BLADDER REPAIR 3yrs ago; 2018- RTKnee arthoplasty. TUBAL LIGATION & THEN TOTLA HYSTERECTOMY. Tonsillectomy,. excission tumor R thigh,. cystoscopy,. Rt KNEE REPLACEMENT - Social History Alcohol Use: Rare Substance Use Type: None Smoking Status (MU): Former Smoker Type: Cigarettes Amount Used/How Often: 1PPD for 10-15years. Length of Time of Smoking/Using Tobacco: 10-15yrs. Have You Smoked in the Last Year: No When Did the Patient Quit Smoking/Using Tobacco: Patient stated she quit when she was in her 30s, so quits 40-some yrs ago. - Immunization History Most Recent Influenza Vaccination: 11/2016 Most Recent Tetanus Shot: "Probably more than 10yrs ago" per pt Most Recent Pneumonia Vaccination: 2015 Physical Exam Vital Signs: Initial Vital Signs Temp 97.2 F 03/16/19 17:19 Pulse 64 03/16/19 17:19 Resp 16 03/16/19 17:19 BP 160/99 03/16/19 17:19 Pulse Ox 100 03/16/19 17:19 Discharge ED - Discharge Plan Referrals: Lashon Rosa MD [Primary Care Provider] -
--- NOTE | 2019-03-16 17:53 | UC ---
Complaint Female HPI - HPI Summary HPI Summary: Pt self caths b/c she has MS. 2 days ago has not felt herself and had nightmares. She states this is how she feels when she gets UTIs. Pt had a UTI on the the Feb and was treated with cephalexin 500 mg po bid. - History Of Current Complaint Chief Complaint: UCGU Stated Complaint: URINARY Time Seen by Provider: 03/16/19 17:07 Hx Obtained From: Patient Pain Intensity: 0 Aggravating Factor(s): Nothing Alleviating Factor(s): Nothing - Allergies/Home Medications Allergies/Adverse Reactions: Allergies Allergy/AdvReac Type Severity Reaction Status Date / Time Iodinated Contrast Media Allergy Hives Verified 03/16/19 17:06 [Iodinated Contrast- Oral and IV Dye] iohexol [From Omnipaque] Allergy Hives/Diff. Verified 03/16/19 17:06 Breathing/I tching morphine Allergy Nausea And Verified 03/16/19 17:06 Vomiting Home Medications: Home Medications Folic Acid TAB* [Folvite TAB*] 1 mg PO DAILY 03/16/19 [History Confirmed ] Levothyroxine TAB* [Synthroid TAB*] 50 mcg PO DAILY 03/16/19 [History Confirmed 03/16/19] Methotrexate TAB* 2.5 mg PO Q7D 03/16/19 [History Confirmed 03/16/19] Ranolazine (NF) [Ranexa (NF)] 500 mg PO BID 03/16/19 [History Confirmed 03/16/19 ] Risedronate Sodium 150 mg PO MONTHLY 03/16/19 [History Confirmed 03/16/19] Trospium (NF) [Sanctura (NF)] 20 mg PO DAILY 03/16/19 [History Confirmed ] Vit C/E/Zn/Coppr/Lutein/Zeaxan [Preservision Areds 2 Softgel] 1 each PO [History] levETIRAcetam TAB* [Keppra TAB*] 1,000 mg PO DAILY 03/16/19 [History Confirmed 03/16/19] PMH/Surg Hx/FS Hx/Imm Hx Previously Healthy: Yes GI/ History: Other - urinary issues Neurological History: Other - MS - Surgical History Surgical History: Yes Surgery Procedure, Year, and Place: LT KNEE REPLACEMENT;. BILATERAL CATARACTS 2010;. TOTAL HYSTERECTOMY;. LEFT HIP REPLACEMENT 2012;. BLADDER REPAIR 3yrs ago; 2018- RTKnee arthoplasty. TUBAL LIGATION & THEN TOTLA HYSTERECTOMY. Tonsillectomy,. excission tumor R thigh,. cystoscopy,. Rt KNEE REPLACEMENT - Family History Known Family History: Positive: Non-Contributory - Social History Alcohol Use: Rare Substance Use Type: None Smoking Status (MU): Former Smoker Type: Cigarettes Amount Used/How Often: 1PPD for 10-15years. Length of Time of Smoking/Using Tobacco: 10-15yrs. Have You Smoked in the Last Year: No When Did the Patient Quit Smoking/Using Tobacco: Patient stated she quit when she was in her 30s, so quits 40-some yrs ago. - Immunization History Most Recent Influenza Vaccination: 11/2016 Most Recent Tetanus Shot: "Probably more than 10yrs ago" per pt Most Recent Pneumonia Vaccination: 2015 Review of Systems All Other Systems Reviewed And Are Negative: Yes Constitutional: Positive: Other - not feeling herself.. Negative: Fever, Chills , Fatigue Genitourinary: Negative: Dysuria, Hematuria, Frequency, Urgency Neurological: Negative: Other - denies disorientation Physical Exam Triage Information Reviewed: Yes Appearance: Well-Appearing Vital Signs: Initial Vital Signs Temp 97.2 F 03/16/19 17:19 Pulse 64 03/16/19 17:19 Resp 16 03/16/19 17:19 BP 160/99 03/16/19 17:19 Pulse Ox 100 03/16/19 17:19 Vital Signs Reviewed: Yes Respiratory: Positive: No respiratory distress Abdomen Description: Positive: Nontender, Soft. Negative: CVA Tenderness (R), CVA Tenderness (L) Neurological: Positive: Alert Skin: Negative: Rashes Complaint Female Dx - Course Course Of Treatment: Feelings of not feeling well in a pt. who self-caths herself. Was tx'd w/ Keflex approx 1 wk ago and feels similar. Denies disorientation, fever, or blood in urine. Good vitals but bp elevated. She is high risk for UTi but UA did not show obvious infxn. She did take an 'at home test' which showed UTI. Plan is tx emprically and she has appt w/ neuro on Mon where they can discuss her symptoms of feeling unwell and her nightmares as this could also be other disorders/ diseases. Of note interaction w/ amiodarone was noted and discussed w/ pt. she did take cipro in the past per pt. She is amenable w/ plan wants to move forward. - Differential Dx/Diagnosis Differential Diagnosis/HQI/PQRI: Urinary Tract Infection, Other Provider Diagnosis: Feeling unwell Discharge ED - Sign-Out/Discharge Documenting (check all that apply): Patient Departure All imaging exams completed and their final reports reviewed: No Studies - Discharge Plan Condition: Good Disposition: HOME Prescriptions: Ciprofloxacin TAB* [Cipro 250 MG Tab*] 250 mg PO BID 3 Days #5 tab Patient Education Materials: Dysuria (ED) Referrals: Lashon Rosa MD [Primary Care Provider] - Additional Instructions: Your blood pressure is a bit elevated so please see your main doctor for this. - Billing Disposition and Condition Condition: GOOD Disposition: Home - Attestation Statements Provider Attestation: Per institutional requirements, I have reviewed the chart, however, I was not consulted specifically or made aware of this patient by the midlevel provider. I did not personally evaluate, interact with, or disposition this patient. EK
[2019-03-16] MEDS ORDERED: Ciprofloxacin TAB* 250 MG PO ONE (18:06)
== END 2019-03-16 18:26 | disposition home or self-care (01) ==
LOC: UCCORT 16:26
DX: F51.5 Nightmare disorder (principal); G35 Multiple sclerosis; Z87.440 Personal history of urinary (tract) infections; Z87.891 Personal history of nicotine dependence
CPT/HCPCS: 81003; 87077; 87086; 87186; 99212; A9270-GY; G0463

== ENCOUNTER 2019-03-18 11:44 | Observation (INO) | payer MEDICARE, OTHER ==
--- OUTSIDE RECORDS SUMMARY | 2019-03-18 12:27 | XMS REPORT | Continuity of Care Document ---
:1940 External Reference #:[id number] Author Name Fritz Shrestha N.P. (transmitted by agent of provider Sabine Wyman) Address [address], [place] [address] Problems Active Problems Provider Date Demyelinating disease of central nervous Laureen Marley M.D. Onset: 2014 system Epilepsy Laureen Marley M.D. Onset: 08/15/2014 Polyneuropathy Laureen Marley M.D. Onset: 08/15/2014 Unsteady gait Laureen Marley M.D. Onset: 05/01/2015 Multiple sclerosis Bill Blake M.D. Onset: 04/20/2017 Hereditary motor and sensory neuropathy Bill Blake M.D. Onset: 2017 Arthralgia of the pelvic region and thigh Fritz Shrestha N.P. Onset: 2018 Social History Type Date Description Comments Sex Unknown ETOH Use Occasionally consumes alcohol Recreational Drug Use Denies Drug Use Tobacco Use Start: Unknown End: Patient is a former quit 30years ago Unknown smoker Smoking Status Reviewed: 03/18/19 Patient is a former quit 30years ago smoker Exercise Type/Frequency Exercises regularly PT twice a week and home exercises. Allergies, Adverse Reactions, Alerts Active Allergies Reaction Severity Comments Date Morphine 01/28/2013 IV Iodine Contrast hives 04/20/2017 Seasonal 04/20/2017 Medications Active Medications SIG Qnty Indications Ordering Provider Date Methotrexate take 3 pills by 12tabs Bill Blake, 06/15/2017 2.5mg mouth each week M.D. Tablets Levetiracetam 2 tabs in the 360tabs Fritz Shrestha, 04/23/2012 500mg am 1 tab in the N.P. Tablets pm Effexor XR take one 90caps Bill Blake, 04/23/2012 75mg Caps ER capsule by Bernardo 24HR mouth every day Folic Acid 1 po qd 90tabs Unknown 1mg Tablets Preservision Areds 1 po bid 60tabs Unknown Tablets Trospium Chloride 1 tab daily 60tabs Unknown 20mg Tablets Risedronate Sodium Take One Tablet Unknown By Mouth Every 150mg Tablets 30 Days Atorvastatin Calcium Take One Tablet Unknown By Mouth Every 10mg Tablets Day Metoprolol Tartrate 12.5 by mouth Unknown twice a day 25mg Tablets Amiodarone HCL 1 by mouth Unknown 200mg every day Tablets Ranexa 1 by mouth Unknown 500mg Tablets ER twice a day 12HR Acetaminophen 2 every 4 hours Unknown 325mg as needed for Tablets pain Levothyroxine Sodium 1 by mouth Unknown every day 25mcg Tablets Medications Administered in Office Medication SIG Qnty Indications Ordering Provider Date Injection Placido Or Tammi Correa M.D. 03/11/2013 Derivative, Euflexxa Per Dose Injection Injection Placido Correa M.D. 03/04/2013 Derivative, Euflexxa Per Dose Injection Injection Hyaluronan Jose D Correa M.D. 02/25/2013 Derivative, Euflexxa Per Dose Injection Immunizations Description No Information Available Vital Signs Date Vital Result Comment 03/18/2019 9:44am Height 69 inches 5'9" Weight 130.00 lb Heart Rate 88 /min BP Systolic 102 mmHg BP Diastolic 80 mmHg BMI (Body Mass Index) 19.2 kg/m2 12/26/2018 2:18pm Height 69 inches 5'9" Weight 136.00 lb Heart Rate 60 /min BP Systolic Sitting 122 mmHg Rue reg cuff BP Diastolic Sitting 82 mmHg Rue reg cuff Respiratory Rate 18 /min BMI (Body Mass Index) 20.1 kg/m2 Results Description No Information Available Procedures Description No Information Available Medical Devices Description No Information Available Encounters Type Date Location Provider Dx Diagnosis Office Visit 12/26/2018 [place] Bill Blake, G40.909 Epilepsy , unsp, 2:15p Neurologic Serv M.DYung not intractable, [facility] [employer] without status epilepticus G35 Multiple sclerosis G60.0 Hereditary motor and sensory neuropathy Assessments Date Code Description Provider 03/18/2019 G40.909 Epilepsy, unspecified, not intractable, Fritz Shrestha N.P. without status epile 03/18/2019 G35 Multiple sclerosis Fritz Shrestha N.P. 03/18/2019 G60.0 Hereditary motor and sensory neuropathy Fritz Shrestha N.P. 12/26/2018 G40.909 Epilepsy, unspecified, not intractable, Bill Blake M.D. without status epile 12/26/2018 G35 Multiple sclerosis Bill Blake M.D. 12/26/2018 G60.0 Hereditary motor and sensory neuropathy Bill Blake M.D. Plan of Treatment Future Appointment(s):04/17/2019 4:00 pm - Bill [facility] at [facility]03/18/2019 - Fritz Shrestha N.P.G40.909 Epilepsy , unspecified, not intractable, without status epileFollow up:keep follow upG35 Multiple sclerosisRecommendations:Go to the ER as we need an MRIG60.0 Hereditary motor and sensory neuropathy Functional Status Description No Information Available Mental Status Description No Information Available Referrals Description No Information Available
--- NOTE | 2019-03-18 15:06 | ED ---
Neurological HPI - HPI Summary HPI Summary: Patient is an 79 y/o F presenting to the ED for a chief complaint of left LE weakness and numbness. Patient is present with her daughter. Patient was sent to [facility] by her neurologist, Dr. Shrestha, for an MRI. Patient has left LE weakness from her multiple sclerosis that worsened on 03/17/19 and notes left LE numbness in the last day. She took Ciprofloxacin after which she began to feel worse. Patient had a CT at [place] on 03/03/19 after a fall that showed abnormal findings. At that time, patient was diagnosed with UTI. She has had several falls this last month which she attributes to her multiple sclerosis. Patient denies fever. No aggravating or alleviating factors are reported. PMHx is significant for multiple sclerosis and atrial fibrillation. She denies taking blood thinners. Patient denies tobacco use, but admits occasional alcohol use. Medications reviewed. Allergies noted. - History of Current Complaint Chief Complaint: EDGeneral Stated Complaint: NUMBNESS LT SIDE PER PT Time Seen by Provider: 03/18/19 14:49 Hx Obtained From: Patient Onset/Duration: Sudden Onset, Still Present Timing: Sudden Onset Onset Severity: Moderate Current Severity: Moderate Pain Intensity: 2 Pain Scale Used: 0-10 Numeric Character: Numbness/Tingling - Left LE, Motor Weakness - Left LE Aggravating: Nothing Alleviating: Nothing Associated Signs and Symptoms: Positive: Weakness - Left LE, Numbness - Left LE. Negative: Fever - Allergy/Home Medications Allergies/Adverse Reactions: Allergies Allergy/AdvReac Type Severity Reaction Status Date / Time Iodinated Contrast Media Allergy Hives Verified 03/18/19 12:07 [Iodinated Contrast- Oral and IV Dye] iohexol [From Omnipaque] Allergy Hives/Diff. Verified 03/18/19 12:07 Breathing/I tching morphine Allergy Nausea And Verified 03/18/19 12:07 Vomiting Home Medications: Home Medications Acetaminophen [Tylenol 8 Hour] 650 mg PO .Q4-6H PRN 03/18/19 [History Confirmed 03/18/19] Amiodarone TAB* [Cordarone TAB*] 200 mg PO DAILY 03/18/19 [History Confirmed ] Atorvastatin* [Lipitor 10 MG*] 10 mg PO DAILY 03/18/19 [History Confirmed ] Metoprolol Tartrate TAB* [Lopressor TAB*] 12.5 mg PO BID 03/18/19 [History Confirmed 03/18/19] levETIRAcetam TAB* [Keppra TAB*] 1,000 mg PO QPM 03/18/19 [History Confirmed ] levETIRAcetam TAB* [Keppra TAB*] 500 mg PO QAM 03/18/19 [History Confirmed 03/18] PMH/Surg Hx/FS Hx/Imm Hx Previously Healthy: Yes Endocrine/Hematology History: Reports: Hx Thyroid Disease Denies: Hx Diabetes Cardiovascular History: Reports: Hx Hypertension - TAKES BP MEDS FOR AFIB, Other Cardiovascular Problems/Disorders - a-fib Denies: Hx Pacemaker/ICD Respiratory History: Reports: Hx Sleep Apnea - Bi-pap GI History: Reports: Hx Gastroesophageal Reflux Disease History: Reports: Other Problems/Disorders - urinary incontinence, neurogenic bladder, Denies: Hx Dialysis, Hx Renal Disease Musculoskeletal History: Reports: Hx Arthritis, Other Musculoskeletal History - OA,osteopenia,Fxs, MS Sensory History: Reports: Hx Contacts or Glasses Denies: Hx Legally Blind, Hx Deafness, Hx Hearing Aid Opthamlomology History: Reports: Hx Contacts or Glasses Denies: Hx Legally Blind EENT History: Denies: Hx Deafness Neurological History: Reports: Hx Seizures - Seizure disorder, Other Neuro Impairments/Disorders - MS, [id number] Psychiatric History: Reports: Hx Depression Denies: Hx Panic Disorder - Cancer History Cancer Type, Location and Year: ENDOMETRIAL CANCER- STAGE 1 - HYSTERECTOMY. Uterine CA Hx Chemotherapy: No Hx Radiation Therapy: No - Surgical History Surgical History: Yes Surgery Procedure, Year, and Place: LT KNEE REPLACEMENT;. BILATERAL CATARACTS 2010;. TOTAL HYSTERECTOMY;. LEFT HIP REPLACEMENT 2012;. BLADDER REPAIR 3yrs ago; 2018- RTKnee arthoplasty. TUBAL LIGATION & THEN TOTLA HYSTERECTOMY. Tonsillectomy,. excission tumor R thigh,. cystoscopy,. Rt KNEE REPLACEMENT Infectious Disease History: No Infectious Disease History: Denies: Traveled Outside the [place] in Last 30 Days - Family History Known Family History: Negative: Diabetes, Renal Disease - Social History Occupation: Retired Lives: With Family Alcohol Use: Rare Hx Substance Use: No Substance Use Type: Reports: None Hx Tobacco Use: Yes Smoking Status (MU): Former Smoker Type: Cigarettes Amount Used/How Often: 1PPD for 10-15years. Length of Time of Smoking/Using Tobacco: 10-15yrs. Have You Smoked in the Last Year: No Review of Systems Negative: Fever Positive: Weakness - Left LE, Numbness - Left LE All Other Systems Reviewed And Are Negative: Yes Physical Exam - Summary Physical Exam Summary: Constitutional: Well-developed, Well-nourished, Alert. (-) Distressed Skin: Warm, Dry HENT: Normocephalic; Atraumatic Eyes: Conjunctiva normal Neck: Musculoskeletal ROM normal neck. (-) JVD, (-) Stridor, (-) Tracheal deviation Cardio: Rhythm regular, rate normal, Heart sounds normal; Intact distal pulses; Radial pulses are 2+ and symmetric. (-) Murmur Pulmonary/Chest wall: Effort normal. (-) Respiratory distress, (-) Wheezes, (-) Rales Abd: Soft, (-) tenderness, (-) Distension, (-) Guarding, (-) Rebound Musculoskeletal: (-) Edema. 4/5 strength in the left LE, decreased sensation in the bilateral LE Lymph: (-) Cervical adenopathy Neuro: Alert, Oriented x3. Psych: Mood and affect Normal Triage Information Reviewed: Yes Vital Signs On Initial Exam: Initial Vitals Temp Pulse Resp BP Pulse Ox 97.8 F 81 19 115/67 97 03/18/19 11:49 03/18/19 11:49 03/18/19 11:49 03/18/19 11:49 03/18/19 11:49 Vital Signs Reviewed: Yes Procedures - Sedation Patient Received Moderate/Deep Sedation with Procedure: No Diagnostics - Vital Signs Vital Signs Temp Pulse Resp BP Pulse Ox 03/18/19 13:01 97.4 F 79 19 133/86 95 03/18/19 11:49 97.8 F 81 19 115/67 97 - Laboratory Result Diagrams: 03/18/19 15:04 03/18/19 15:04 Lab Statement: Any lab studies that have been ordered have been reviewed, and results considered in the medical decision making process. Re-Evaluation - Re-Evaluation First Eval Re-Evaluation Time: 15:11 Change: Unchanged Comment: At 15:11, her watchman is not compatible. Course/Dx - Course Course Of Treatment: Patient is here with worsening left lower extremity weakness. Patient has a history of MS and is currently not on any medication. Patient was started on ciprofloxacin recently which likely exacerbated her MS. Patient has no other neurologic deficits. Neurology was called and they wanted an MRI. Patient has a history of a watchmen so cardio was called and her watchmen's is with compatible MRI. Patient was admitted to the hospitalist - Diagnoses Provider Diagnoses: Multiple sclerosis exacerbation - Physician Notifications Discussed Care Of Patient With: Kathryn Mart - At 15:26, Dr. Mart agrees to admit the patient to [facility] with a diagnosis of multiple sclerosis exacerbation. Time Discussed With Above Provider: 15:26 Instructed by Provider To: Admit As Inpatient Discharge ED - Sign-Out/Discharge Documenting (check all that apply): Patient Departure - Admit - Discharge Plan Condition: Stable Disposition: ADMITTED TO [facility] - Billing Disposition and Condition Condition: STABLE Disposition: Admitted to [facility] - Attestation Statements Document Initiated by Hilarioe: Yes Documenting Scribe: Yesika Espino Provider For Whom Oliva is Documenting (Include Credential): Jonah Jean-Baptiste MD Scribe Attestation: Yesika Claros scribed for Jonah Jean-Baptiste MD on 03/18/19 at 1848. Scribe Documentation Reviewed: Yes Provider Attestation: The documentation as recorded by the Yesika victoria accurately reflects the service I personally performed and the decisions made by me, Jonah Jean-Baptiste MD Status of Scribe Document: Viewed
[2019-03-18 15:18] LABS: ABS Lymphocytes 1.4 10^3/ul (1.0-4.8); ABS Monocytes 0.6 10^3/ul (0-0.8); ABS Neutrophils 2.8 10^3/ul (1.5-7.7); Eosinophil % 0.8 %; Hematocrit 42 % (35-47); Hemoglobin 14.2 g/dL (12.0-16.0); Lymphocyte % 28.6 %; Mean Corpuscular HGB Conc 34 g/dL (31-36); Mean Corpuscular Hemoglobin 34 pg (27-31); Mean Corpuscular Volume 100 fL (80-97); Mean Platelet Volume 8.3 fL (7.4-10.4); Nucleated Red Blood Cells % 0.1; Platelet Count 227 10^3/uL (150-450); Red Blood Count 4.18 10^6 /uL (3.70-4.87); Red Cell Distribution Width 15 % (10-15); White Blood Count 4.9 10^3/uL (3.5-10.8)
[2019-03-18 15:43] LABS: Albumin 4.2 g/dL (3.2-5.2); Albumin/Globulin Ratio 1.6 (1-3); BUN/Creatinine Ratio 23.6 (8-20); C Reactive Protein 1.36 mg/L (<8.01); Calcium 9.7 mg/dL (8.6-10.3); EGFR African American 73.7 (>60); EGFR Non-African American 60.9 (>60); Globulin 2.6 g/dL (2-4); Total Bilirubin 0.5 mg/dL (0.2-1.0); Total Protein 6.8 g/dL (6.4-8.9)
[2019-03-18 16:31] LABS: Potassium 3.9 mmol/L (3.5-5.0)
[2019-03-18] MEDS ORDERED: Acetaminophen TAB* 325 MG PO PRN (16:33)
[2019-03-18 16:35] LABS: Erythrocyte Sed Rate 9 mm/Hr (0-29)
[2019-03-18 17:09] LABS: Folate > 20.00 ng/mL (>3.99)
--- NOTE | 2019-03-18 17:27 | CONS ---
CC: Dr. Bill Blake; Heriberto Shrestha NP * NEUROLOGY CONSULTATION: DATE OF CONSULT: 03/18/19 LOCATION: She is in the emergency room, to be admitted. REFERRING PROVIDER: Dr. Jonah Jean-Baptiste. CHIEF COMPLAINT: Weakness, repeated falls. HISTORY OF PRESENT ILLNESS: Aaliyah Walton is an 79-year-old woman with a diagnosis of secondary progressive multiple sclerosis, referred to the emergency room for admission and neuroimaging. She is accompanied by her daughter. I reviewed outpatient records from Heriberto Shrestha NP and Dr. Gareth Blake, and I spoke with Heriberto Shrestha NP earlier today. She has had progressive weakness and falls for at least 6 months. When last seen by Dr. Blake in the office last fall, it was recommended that she get a motorized scooter. She declined. She has continued to fall and recently had a fall and hit her head. That was a couple of weeks ago. She was diagnosed as having a urinary tract infection at the [facility] and a CT scan of the brain was interpreted as showing an area of encephalomalacia. This led to a transfer to [facility] where she was seen in the emergency room and released. She was told that there is no evidence of a stroke and that it is just related to her urinary tract infection and multiple sclerosis. She spoke with Heriberto Shrestha NP, today because of repeated falls and it was decided she needed an MRI scan to sort out whether or not she might have had a stroke versus progression of her demyelinating disease. Therefore, she is referred to the emergency room for admission and MR imaging. She has a history of intermittent atrial fibrillation and had a WATCHMAN device put in several months ago. She has not had any sense of going into atrial fibrillation since. She was on anticoagulation some years ago, but because of the falls and bruising, it was stopped. She started with multiple sclerosis with visual changes and weakness many decades ago. She has never been on disease-modifying therapy. She has gotten gradually worse with progressive falls over the last at least 3 to 6 months. Most of the time, she just loses her balance, but she is often too weak to get up. She had a fall this past week where she was able to pull herself back up, which she is quite proud of. She feels that she has gotten gradually weaker as well as more imbalanced over the months. She does not have any other new symptoms to report. 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 PAST SURGICAL HISTORY: Left total hip replacement, left total knee replacement in 2014. MEDICATIONS: At home consist of: 1. Venlafaxine extended release 75 mg p.o. daily. 2. Sanctura 20 mg p.o. daily. 3. Levothyroxine 50 mcg p.o. daily. 4. Keppra 500 mg p.o. q.a.m. and 1000 mg p.o. q.h.s. 5. Ranexa 500 mg p.o. b.i.d. 6. Metoprolol 25 mg p.o. b.i.d. 7. Methotrexate 2.5 mg p.o. daily. 8. Atorvastatin 10 mg p.o. daily. 9. Amiodarone 200 mg p.o. daily. ALLERGIES: She is allergic to IODINATED CONTRAST MATERIAL and MORPHINE. SOCIAL HISTORY: She does not smoke. She does not drink alcohol. She lives with her . Her daughter is checking on them regularly and prepares meals for them and put in a freezer. REVIEW OF SYSTEMS: Negative for recent change in weight, intestinal problems, or faints. There has been no recent change in vision. Her family is moving her and her into a single-level home and they are trying to preserve her strength and mobility until then. She does have a motorized wheelchair that is pending. PHYSICAL EXAM: She is thin but well hydrated. Temperature 97.4, blood pressure 130/86, heart rate is in the 70s and regular. I do not hear any murmurs. Head is atraumatic. Carotid pulses are present and there are no cervical bruits. Oral mucosa is moist and atraumatic. Neurological Exam: Pupils react equally from 5 down to 2.5 mm. Funduscopic exam is normal bilaterally. Eye movements are normal. Visual giraldo are full to confrontation. Facial musculature is symmetric. Speech is clear without dysarthria. Facial sensation to light touch is symmetric. Motor exam reveals a spastic catch in the left leg. She has mild left wrist extensor weakness, but otherwise normal strength in the upper extremities. In the lower extremities, she has less than antigravity left hip flexor weakness and she also has a left footdrop. She has grade 4 right hip flexor weakness and grade 4- right ankle dorsiflexor weakness. [id number]-cw-[id number] maneuver is quite ataxic bilaterally. Zjnuql-vs-tkko maneuver is ataxic in the left arm only. Reflexes are absent in the legs and trace at the biceps. She is alert and oriented and an excellent detailed historian. Memory is intact and language is fluent. She has adequate attention, concentration, and fund of knowledge. LABORATORY DATA: Includes a CBC from today notable for MCV of 100 and otherwise unremarkable CBC. Sedimentation rate is pending. Chemistries today unremarkable. Last vitamin B12 level in the chart is from 2015 and was 251. Urinalysis from 03/16/19 is unremarkable. IMPRESSION AND PLAN: Impression is that of secondary progressive multiple sclerosis. Because of the concerns of a possible cerebrovascular event, she has been referred to the emergency room for MR imaging. I am going to check some additional labs to see if there is anything else going on medically that is making her more ataxic and weak. Specifically, we will check a Keppra level, vitamin B12 level and folate, and a TSH. MRI of the brain with and without contrast has been ordered. In regards to her progressive weakness, if this is all secondary progressive multiple sclerosis, it might be worth a trial of Ampyra. I will leave that up to Heriberto Shrestha NP and Dr. Blake. Also, a discussion regarding the agents approved for secondary progressive multiple sclerosis should be considered. I will follow up on her after her labs and MRI scans are done. [id number]/[facility] #: [id number] [facility]IT[facility]risti
[2019-03-18] MEDS: levETIRAcetam TAB* 500 MG PO SCH (18:14)
[2019-03-18] MEDS: Enoxaparin(*) 40 MG/0.4 ML SYR SUBCUT SCH (18:15)
--- NOTE | 2019-03-18 19:49 | HP ---
HISTORY AND PHYSICAL: ADDENDUM: DIAGNOSIS: Urinary tract infection. The patient did have a urine sample on that was positive for E. coli. She was started on Cipro at that time. I will change her antibiotic to cefdinir 300 mg p.o. b.i.d. for treatment of her underlying urinary tract infection. ARI LANTIGUA, DIRECTOR OF MANAGED SERVICES [id number]/[facility] #: [id number] [facility]ENT[facility]risti
[2019-03-18 20:26] LABS: Urine Appearance Clear; Urine Bilirubin Negative (Negative); Urine Blood Negative (Negative); Urine Color Amber; Urine Glucose Negative (Negative); Urine Ketones Trace (Negative); Urine Nitrite Negative (Negative); Urine Protein Negative (Negative); Urine Specific Gravity 1.029 (1.010-1.030); Urine Urobilinogen Negative (Negative)
[2019-03-18 20:28] LABS: Urine Bacteria Absent (Absent); Urine Red Blood Cell 2+(6-10/hpf) (Absent); Urine Squamous Epithelial Cell Present (Absent); Urine White Blood Cell 2+(11-20/hpf) (Absent)
--- NOTE | 2019-03-18 20:55 | HP ---
ADDENDUM NOW INCLUDED ON THIS REPORT CC: Dr. Connor; Dr. Rosa * HISTORY AND PHYSICAL: DATE OF ADMISSION: 03/18/19 PROVIDER: Patricia Montana NP. PRIMARY CARE PHYSICIAN: Dr. Rosa ATTENDING PHYSICIAN WHILE IN THE HOSPITAL: Dr. Kathryn Mart * (dictated by Patricia Montana NP). CHIEF COMPLAINT: Progressively worsening left-sided weakness. HISTORY OF PRESENT ILLNESS: Ms. Walton is an 79-year-old female with a past medical history significant for neurogenic bladder, MS, secondary progressive multiple sclerosis, intermittent atrial fibrillation, recent Watchman device placement; hereditary neuropathy, who presented to the emergency room from Dr. Blake's office with progressively worsening left-sided weakness and frequent falls. The patient reports that on 03/03/19, she had a fall at home. She went to [facility]. She was found to have a urinary tract infection. At that time , she had a CT of her head, which showed MS lesions and possible stroke. She went to [facility] where she was diagnosed with UTI and MS. At that time, she was started on Cipro for her UTI for 5 days. The following 03/11/19, the patient had another fall. She had no injuries at that time and has been doing well at home. Again, she had another fall yesterday. She did a urinalysis at home, which was concerning for UTI. So, she went to Urgent Care. She was started again on Cipro for UTI. The patient reports that she took 1 dose Monday night and then was concerned about the antibiotics, so she has not taken any further dosing of Cipro. Due to the increased falls and progressive left- sided weakness, the patient was sent to the emergency room for further evaluation. The patient does have a history of being on an anticoagulation, but due to the increased falls and bruising the anticoagulation was stopped. While in the emergency room, the patient had routine lab work drawn which was within normal limits. She was seen in consultation by Neurology, who recommended an MRI of the brain. PAST MEDICAL HISTORY: Significant for: 1. Secondary progressive MS. 2. Neurogenic bladder. 3. Intermittent atrial fibrillation status post Watchman device. 4. Hereditary neuropathy. 5. Uterine cancer history, status post hysterectomy. 6. Seizures. 7. Hypertension. 8. Hypothyroid. PAST SURGICAL HISTORY: 1. Left total hip replacement. 2. Bilateral knee replacements. 3. Hysterectomy. 4. Appendectomy. 5. Tonsillectomy. 6. Cataract surgery. MEDICATIONS: Home medications: 1. Effexor 75 mg p.o. daily. 2. Trospium 20 mg p.o. daily. 3. Risedronate 150 mg monthly. 4. Levothyroxine 50 mcg p.o. daily. 5. Keppra 1000 mg at bedtime, 500 in the morning. 6. PreserVision 1 tab p.o. daily. 7. Ranexa 500 mg p.o. b.i.d. 8. Lopressor 12.5 b.i.d. 9. Methotrexate 2.5 mg 3 tablets every 7 days. 10. Folic acid 1 mg p.o. daily. 11. Atorvastatin 10 mg p.o. daily. 12. Amiodarone 1200 mg p.o. daily. 13. Acetaminophen 650 mg every 4 to 6 hours as needed for pain. ALLERGIES: To IODINATED CONTRAST and MORPHINE, IOHEXOL, FAMILY HISTORY: No reported history of coronary artery disease, diabetes. Father from pancreatic cancer. SOCIAL HISTORY: The patient reports she smoked for approximately 15 years, quit at the age of 28. She smoked a pack a day, does report occasional alcohol use. No illicit drug use. She is . She lives with her . She walks with a walker. Family visits frequently to help out. Surrogate decision maker in the event if she is unable to make her own decisions is her daughter. She is a full code. REVIEW OF SYSTEMS: She denies any fever, chills, unintended weight loss, chest pain or edema. No cough, hemoptysis or shortness of breath. No nausea, vomiting , diarrhea or abdominal pain. She denies any gross hematuria or dysuria, focal weakness, sensory loss, visual complaints, dysphagia, arthralgias, myalgias, rashes, lesions, open sores, psychosis or anxiety. PHYSICAL EXAMINATION GENERAL: At this time, Ms. Walton is an 79-year-old female. She is alert and oriented resting on the stretcher in the emergency room. She is in no acute distress. VITAL SIGNS: Blood pressure 121/75, heart rate 71, respirations are 16, O2 saturation 98%, temperature 98.0. HEENT: Head is atraumatic, normocephalic. Eyes, EOMs are intact. Sclerae anicteric and not pale. Oral mucosa appears to be moist. NECK: Supple. LUNGS: Lungs are clear to auscultation bilaterally. No wheezes, rales, or rhonchi. CARDIAC: S1, S2. Irregular rate and rhythm. No murmurs, rubs, or gallops. ABDOMEN: Soft and nontender. Bowel sounds are present x4. EXTREMITIES: She is able to move all 4 extremities. There is no clubbing or cyanosis. NEUROLOGIC: She is awake, alert, and oriented x3. Speech is clear. Thought process is intact. There is no gross focal deficit. LABORATORY DATA AND DIAGNOSTIC STUDIES: WBCs are 4.9, RBCs 4.18, hemoglobin 14.2, hematocrit is 42, platelet count is 227, ESR was 9. Sodium 137, potassium 3.9, chloride 105, carbon dioxide is 22, anion gap of 10, BUN was 21, creatinine 0.89, glucose is 95. AST is 23, ALT is 22, alkaline phosphatase is 72. Folate was less than 20, vitamin B12 of 190, TSH was 3.4. Urine is currently pending. Keppra level is also pending. ASSESSMENT AND PLAN: Ms. Walton is an 79-year-old female with secondary progressive MS, history of intermittent atrial fibrillation with a Watchman's device, hypertension, hyperlipidemia, history of uterine cancer, status post hysterectomy, who presented to the emergency room with complaints of progressively worsening left- sided weakness and increased falls. She will be admitted under observation for: 1. Left-sided weakness/falls. The patient has secondary progressive multiple sclerosis, for which she follows with Dr. Blake in Neurology. This is likely progression of her MS. She was seen by Dr. Connor from Neurology who recommended an MRI of the brain due to recent CT study for concern of stroke. She will have an MRI of the brain. The patient does not need any other further workup at this time per neurology. We will observe her overnight. 2. Multiple sclerosis. The patient is not currently on any secondary prevention of the MS. We will continue to monitor her symptoms. 3. Hypothyroid. She is to continue on levothyroxine as previously prescribed. 4. History of seizures. The patient does have a history of seizures. She will continue on Keppra 500 mg in the morning and 1000 mg at night. 5. Atrial fibrillation. The patient should continue on 12.5 mg of metoprolol twice daily and amiodarone 200 mg p.o. daily. The patient is currently not on anticoagulation due to frequent falls and bruising. 6. Hyperlipidemia. She should continue on atorvastatin 10 mg p.o. daily. 7. Anxiety and depression. The patient should continue on Effexor 75 mg p.o. daily. 8. Neurogenic bladder. Patient self caths at home. will continue straight cath or self catheterization during this hospitalization. 9. FEN: She can have a regular diet. 10. Code status is full code. 11. DVT prophylaxis: I will place her on Lovenox subcu. TIME SPENT: Time spent on this admission was 60 minutes. Greater than half that time was spent at the bedside reviewing the events leading thus far to her hospitalization, performing physical exam, and reviewing my plan of care. I have discussed this with my attending Dr. Kathryn Mart, she is in agreement with my plan. PATRICIA MONTANA NP ADDENDUM: DIAGNOSIS: Urinary tract infection. The patient did have a urine sample on that was positive for E. coli. She was started on Cipro at that time. I will change her antibiotic to cefdinir 300 mg p.o. b.i.d. for treatment of her underlying urinary tract infection. PATRICIA MONTANA NP [id number]/[facility] #: [id number] Zachary-[id number]/[facility] #: [id number] THANG
[2019-03-18] MEDS: Metoprolol Tartrate TAB* 25 MG PO SCH (21:15)
[2019-03-18] MEDS: CMC:Ranolazine (NF) 500 MG TAB PO SCH (21:15)
[2019-03-18] MEDS: Cefdinir cap* 300 MG CAP PO SCH (21:15)
[2019-03-19] MEDS: Levothyroxine TAB* 50 MCG TAB PO SCH (06:04)
[2019-03-19] MEDS ORDERED: Cyanocobalamin INJ * 1,000 MCG/ML VIAL 1 ML VIAL IM ONE (07:00)
[2019-03-19] MEDS: Venlafaxine EXT RELEASE CAP* 75 MG PO SCH (08:11)
[2019-03-19] MEDS: levETIRAcetam TAB* 500 MG PO SCH ×2 (08:12→18:22)
[2019-03-19] MEDS: Folic Acid TAB* 1 MG PO SCH (08:12)
[2019-03-19] MEDS: Amiodarone TAB* 200 MG PO SCH (08:12)
[2019-03-19] MEDS: Atorvastatin* 10 MG TAB PO SCH (08:12)
[2019-03-19] MEDS: Metoprolol Tartrate TAB* 25 MG PO SCH ×2 (08:13→21:48)
[2019-03-19] MEDS: Cefdinir cap* 300 MG CAP PO SCH ×2 (08:13→21:48)
[2019-03-19] MEDS: CMC:Ranolazine (NF) 500 MG TAB PO SCH ×2 (08:13→21:47)
[2019-03-19] MEDS: NF:Multivitamins/Minera Areds(NF) 1 CAP CAP PO SCH (08:14)
[2019-03-19] MEDS ORDERED: NS 0.9% 1000 ML** 1,000 ML IV ONE (11:46)
[2019-03-19 12:01] LABS: Hematocrit 36 % (35-47); Hemoglobin 12.6 g/dL (12.0-16.0); Mean Corpuscular HGB Conc 35 g/dL (31-36); Mean Corpuscular Hemoglobin 34 pg (27-31); Mean Corpuscular Volume 99 fL (80-97); Mean Platelet Volume 7.8 fL (7.4-10.4); Platelet Count 224 10^3/uL (150-450); Red Blood Count 3.67 10^6 /uL (3.70-4.87); Red Cell Distribution Width 15 % (10-15); White Blood Count 3.7 10^3/uL (3.5-10.8)
[2019-03-19 12:20] LABS: BUN/Creatinine Ratio 23.3 (8-20); Calcium 8.6 mg/dL (8.6-10.3); EGFR African American 76.6 (>60); EGFR Non-African American 63.3 (>60); Potassium 3.7 mmol/L (3.5-5.0)
[2019-03-19 12:40] LABS: ABS Basophils 0.1 10^3/ul (0-0.2); ABS Monocytes 0.6 10^3/ul (0-0.8); ABS Neutrophils 2.1 10^3/ul (1.5-7.7); Lymphocyte % 26.4 %; Nucleated Red Blood Cells % 0.1
[2019-03-19] MEDS ORDERED: Gadoteridol* (CONTRAST) 279.3 MG/ML 10 ML IV ONE (15:25)
[2019-03-19] MEDS: Enoxaparin(*) 40 MG/0.4 ML SYR SUBCUT SCH (17:57)
--- NOTE | 2019-03-19 23:47 | DS ---
CC: Dr. Blake; Dr. Connor; Dr. Rosa.* DISCHARGE SUMMARY: DATE OF ADMISSION: 03/18/19 DATE OF ANTICIPATED DISCHARGE: 03/20/19 (this is dictated in advance for anticipation of very early discharge this morning). ATTENDING PHYSICIAN WHILE IN THE HOSPITAL: Dr. Kathryn Mart * (dictated by MALIA Glover). CONSULTING NEUROLOGIST: Dr. Connor. OUTPATIENT NEUROLOGIST: Dr. Blake. PRIMARY CARE PROVIDER: Dr. Rosa. PRIMARY DIAGNOSIS: Worsening left-sided weakness, likely secondary to multiple sclerosis, acute flare ruled out. SECONDARY DIAGNOSES: 1. Secondary progressive multiple sclerosis. 2. Neurogenic bladder. 3. Intermittent atrial fibrillation status post Watchman device. 4. Hereditary neuropathy. 5. Uterine cancer status post hysterectomy. 6. Seizures. 7. Hypertension. 8. Hypothyroidism. PERTINENT STUDIES/LABORATORY DATA: MRI of the brain on 03/19/19. Impression: Overall burden of chronic white matter disease unchanged. There is no imaging evidence of active demyelination. No acute intracranial abnormality identified. HISTORY OF PRESENT ILLNESS/HOSPITAL COURSE: Aaliyah Walton is an 79-year-old white female with a past medical history significant for secondary progressive multiple sclerosis, not on any medication; seizures; intermittent paroxysmal atrial fibrillation status post watchman device; hypertension; hypothyroidism, who presents to the emergency department due to progressive left-sided weakness and concern from outpatient CT scan by Dr. Blake. Dr. Blake wants the patient admitted to the hospital for MRI and close followup due to CT scan having concerning signs for acute CVA. While she was in the hospital, she did have an evaluation by Physical Therapy, who found the patient safe to return home and as previously recommended by Dr. Blake's office they recommended motorized wheelchair. Previously, the patient had declined this and; however, during this hospitalization she has expressed that she is interested in this. The patient had no further focal deficits neurologically. She was evaluated by Dr. Connor who agreed with MRI of the brain as ordered. The patient has chronic neuropathy and her overall physical exam was unchanged from her baseline and Dr. Connor agreed that it is likely that her progressive weakness is secondary to her progressive MS. Her MRI was performed and demonstrated no acute MS flares and no concern for acute infarct. Overall, was only with chronic changes. The patient was deemed safe for discharge. She was ready to be discharged in the evening of 03/19/19; however, due to being late in the evening , the patient was unable to find a ride home. This discharge has been prepped for the production sampler discharge of 03/19/19. PHYSICAL EXAMINATION: On 03/19/19: General: Thin, elderly white female, lying in the hospital bed, appearing comfortable, in no acute distress. HEENT: Eyes: PERRLA. Sclerae anicteric. ENT: Mucous membranes are moist. Lungs: Clear to auscultation throughout. Cardio: Regular rate and rhythm without murmurs, rubs, or gallops. Abdomen: Soft, nontender, and nondistended. Extremities: No clubbing, cyanosis, or edema. Neuro: Diminished sensation to light touch on the left leg which is consistent with baseline per the patient. Strength 4/4 in the lower extremity and 5/5 in the upper extremities. The patient is able to lift bilateral lower extremities against gravity. Sensation in bilateral upper extremities is intact and asymmetrical. Face is symmetrical. Speech is clear. Tongue is midline. Skin: Warm, dry, and intact. DISCHARGE PLAN: Diet: Regular unrestricted diet. Activity: The patient may return to normal activity as tolerated. The patient should follow up with Dr. Blake outpatient in the next 1 to 2 weeks. She should follow up with her primary care provider in a week to 10 days. At the time of followup with her primary care provider it will be of benefit for her to evaluate if her UTI is clearing up. She is advised to continue the cefdinir until complete course. She was previously started on ciprofloxacin by her primary care provider when she requested antibiotic change in the hospital. At this time of dictation, there is no urine culture; however, there is an outpatient urine culture demonstrating E.coli. The urine which is overall gustafson sensitive except for ampicillin. She is advised to return to emergency department for new changes in gait, unilateral weakness, numbness or tingling, facial droop, speech changes, fever, chills, abdominal pain, flank pain, hematuria. Follow up with Dr. Blake the process for obtaining a motorized wheelchair should be investigated. Dr. Connor has recommended starting a trial of Ampyra; however, he and I will both defer this to her normal outpatient neurological team, Heriberto Shrestha and Dr. Bill Blake. DISCHARGE MEDICATIONS: New medications: 1. Cefdinir 30 mg p.o. b.i.d. x5 days. Continued home medications: 1. Tylenol 650 mg p.o. q.4 to 6 hours p.r.n. fever/pain. 2. Amiodarone 200 mg p.o. daily. 3. Lipitor 10 mg p.o. daily. 4. Folic acid 1 mg p.o. daily. 5. Keppra 500 mg p.o. daily. 6. Methotrexate 2.5 mg p.o. weekly. 7. Metoprolol tartrate 12.5 mg p.o. b.i.d. 8. Ranexa 500 mg p.o. b.i.d. 9. PreserVision AREDS soft gel 1 cap p.o. daily. 10. Keppra 1000 mg p.o. q. p.m. 11. Synthroid 50 mcg p.o. daily. 12. Risedronate 150 mg p.o. monthly. 13. Trospium 20 mg p.o. daily. 14. Venlafaxine 75 mg p.o. daily. CONDITION ON DISCHARGE: Stable. DISPOSITION: Home. TIME SPENT: Approximately 40 minutes spent on the discharge, approximately half that time was spent at the bedside evaluating the patient and discussing the plan of care. MALIA GLOVER [id number]/[facility] #: [id number] MTDD
[2019-03-20] MEDS: Levothyroxine TAB* 50 MCG TAB PO SCH (05:59)
[2019-03-20] MEDS: CMC:Ranolazine (NF) 500 MG TAB PO SCH (08:53)
[2019-03-20] MEDS: Cefdinir cap* 300 MG CAP PO SCH (08:53)
[2019-03-20] MEDS: Folic Acid TAB* 1 MG PO SCH (08:54)
[2019-03-20] MEDS: Venlafaxine EXT RELEASE CAP* 75 MG PO SCH (08:54)
[2019-03-20] MEDS: Atorvastatin* 10 MG TAB PO SCH (08:54)
[2019-03-20] MEDS: Amiodarone TAB* 200 MG PO SCH (08:55)
[2019-03-20] MEDS: Metoprolol Tartrate TAB* 25 MG PO SCH (08:55)
[2019-03-20] MEDS: levETIRAcetam TAB* 500 MG PO SCH (08:57)
[2019-03-20] MEDS: NF:Multivitamins/Minera Areds(NF) 1 CAP CAP PO SCH (08:58)
[2019-03-20 09:19] VITALS: BP 106/53
[2019-03-20] MEDS ORDERED: Multivitamins/Minerals TAB PO SCH (10:03)
== END 2019-03-20 11:43 | disposition home or self-care (01) ==
LOC: ED 11:44 → MEDTELE 16:33
PROVIDERS: ADMIT Nurse Practitioner; ATTEND Internal Medicine
DX: R53.1 Weakness (principal); G35 Multiple sclerosis; N31.2 Flaccid neuropathic bladder, not elsewhere classified; I48.91 Unspecified atrial fibrillation; G60.9 Hereditary and idiopathic neuropathy, unspecified; R56.9 Unspecified convulsions; I10 Essential (primary) hypertension; E03.9 Hypothyroidism, unspecified; R29.6 Repeated falls; K21.9 Gastro-esophageal reflux disease without esophagitis; Z85.42 Personal history of malignant neoplasm of other parts of uterus; Z79.899 Other long term (current) drug therapy; Z90.710 Acquired absence of both cervix and uterus; Z87.891 Personal history of nicotine dependence; F51.5 Nightmare disorder; Z87.440 Personal history of urinary (tract) infections
CPT/HCPCS: 36415; 70553; 80048; 80053; 80177; 81003; 81015; 82607; 82746; 84443; 85025; 85652; 86140; 87086; 96372; 99283; A9270-GY; A9579; G0378; J3420

== ENCOUNTER 2020-10-20 09:55 | Inpatient (IN) ==
[2020-10-20 12:12] LABS: ABS Basophils 0.1 10^3/ul (0-0.2); ABS Eosinophils 0.1 10^3/ul (0-0.6); ABS Lymphocytes 1.1 10^3/ul (1.0-4.8); ABS Monocytes 0.7 10^3/ul (0-0.8); ABS Neutrophils 2.9 10^3/ul (1.5-7.7); Eosinophil % 1.2 %; Hematocrit 35 % (35-47); Hemoglobin 12.1 g/dL (12.0-16.0); Lymphocyte % 22.9 %; Mean Corpuscular HGB Conc 35 g/dL (31-36); Mean Corpuscular Hemoglobin 34 pg (27-31); Mean Corpuscular Volume 97 fL (80-97); Mean Platelet Volume 8.3 fL (7.4-10.4); Nucleated Red Blood Cells % 0.1; Platelet Count 181 10^3/uL (150-450); Red Cell Distribution Width 14 % (10-15); White Blood Count 4.7 10^3/uL (3.5-10.8)
[2020-10-20 12:22] LABS: Activated Partial Thrombo Time 30.8 seconds (26.0-38.0); INR 1.1 (0.86-1.15)
[2020-10-20 12:26] LABS: Albumin 3.7 g/dL (3.2-5.2); Albumin/Globulin Ratio 1.5 (1-3); Calcium 8.9 mg/dL (8.6-10.3); EGFR African American 85.6 (>60); EGFR Non-African American 70.7 (>60); Globulin 2.4 g/dL (2-4); Potassium 3.9 mmol/L (3.5-5.0); Total Bilirubin 0.4 mg/dL (0.2-1.0); Total Protein 6.1 g/dL (6.4-8.9)
[2020-10-20] MEDS ORDERED: Ondansetron 4 mg VIAL 2 MG/ML 2 ml VIAL IV PRN (12:34)
[2020-10-20] MEDS ORDERED: diPHENhydraMINE 25 mg TAB PO PRN (12:34)
[2020-10-20] MEDS ORDERED: diPHENhydraMINE IV 50 MG/ML 1 ml VIAL (BENADRYL) IV PRN ×2 (12:34→15:26)
[2020-10-20] MEDS ORDERED: Magnesium Hydroxide LIQ 30 ML UDC PO PRN ×2 (12:34→12:39)
[2020-10-20] MEDS ORDERED: Ondansetron ODT 4 mg TAB 4 MG TAB PO PRN (12:34)
[2020-10-20] MEDS ORDERED: Lactulose 30 ml UDC PO PRN (12:34)
[2020-10-20] MEDS ORDERED: Al Hydrox/Mg Hydrox/Simet LIQ 30 ML UDC PO PRN (12:39)
[2020-10-20] MEDS ORDERED: guaiFENesin 100 mg/5 ml LIQ unit dose cup PO PRN (12:39)
[2020-10-20] MEDS ORDERED: HYDROmorphone 1 MG/1 ML SYRINGE IV SLOW PU PRN (12:41)
[2020-10-20] MEDS ORDERED: ceFAZolin 2 GM in NS PREMIX 2 GM/100 ML BAG IVPB ONE (13:47)
[2020-10-20] MEDS ORDERED: Bupivacaine 0.5% SDV PF 30ML VIAL ONE (13:49)
[2020-10-20] MEDS ORDERED: Lidocaine 2% PF 5 ML VIAL ONE (14:17)
[2020-10-20] MEDS ORDERED: Propofol 10 MG/ML 20 ML BTL ONE (14:17)
[2020-10-20] MEDS ORDERED: fentaNYL 100 mcg/2 ml 50 MCG/ML VIAL ONE (14:17)
[2020-10-20] MEDS ORDERED: Phenylephrine 40 mcg/mL 10mL (400mcg) SYRINGE ONE (14:42)
[2020-10-20] MEDS ORDERED: Ondansetron 4 mg VIAL 2 MG/ML 2 ml VIAL ONE (14:48)
[2020-10-20] MEDS ORDERED: Dexamethasone IV 4 MG/ML VIAL 1 ml VIAL ONE (14:48)
[2020-10-20] MEDS ORDERED: Prochlorperazine 5 mg/ml 2 ml VIAL (10 mg) IV PRN (15:26)
[2020-10-20] MEDS ORDERED: Naloxone 0.4 mg VIAL 0.4 mg/ml 1 ml VIAL IV PRN (15:26)
[2020-10-20] MEDS ORDERED: HYDROmorphone 1 MG/1 ML SYRINGE IV PRN (15:26)
[2020-10-20] MEDS: Lactated Ringers 1000 ml BAG 1,000 ML IV SCH (17:08)
[2020-10-20] MEDS: CMCS: Ranolazine 500 mg TAB (NF) PO SCH (21:56)
[2020-10-20] MEDS: ceFAZolin 1 GM X 3 DOSES POST-OP Q8H (AddVan) IVPB SCH (22:37)
[2020-10-21] MEDS: ceFAZolin 1 GM X 3 DOSES POST-OP Q8H (AddVan) IVPB SCH ×3 (06:19→23:08)
[2020-10-21] MEDS: Lactated Ringers 1000 ml BAG 1,000 ML IV SCH ×2 (06:22→20:22)
[2020-10-21 07:00] LABS: Hematocrit 29 % (35-47); Hemoglobin 9.8 g/dL (12.0-16.0)
[2020-10-21 07:19] LABS: Calcium 8.5 mg/dL (8.6-10.3); EGFR African American 90.9 (>60); EGFR Non-African American 75.1 (>60); Potassium 3.9 mmol/L (3.5-5.0)
[2020-10-21] MEDS ORDERED: Heparin 5000 UNITS/ML 1 mL VIAL SUBCUT SCH (09:00)
[2020-10-21] MEDS: Vitamin THERAPEUTIC TAB PO SCH (09:19)
[2020-10-21] MEDS: Cholecalciferol (VIT D3) 1,000 unit TAB PO SCH (09:20)
[2020-10-21] MEDS: CMCS: Ranolazine 500 mg TAB (NF) PO SCH ×2 (09:20→20:20)
[2020-10-21] MEDS: Venlafaxine XR 75 mg PO SCH (09:20)
[2020-10-21] MEDS: TROSPIUM 20 MG PO SCH (09:20)
[2020-10-21] MEDS: Heparin 5000 UNITS/ML 1 mL VIAL SUBCUT SCH ×2 (09:20→20:20)
[2020-10-22] MEDS ORDERED: NS 0.9% 50 ML 50 ML ONE (05:28)
[2020-10-22] MEDS: ceFAZolin 1 GM X 3 DOSES POST-OP Q8H (AddVan) IVPB SCH ×3 (05:35→19:10)
[2020-10-22] MEDS ORDERED: Lactated Ringers 1000 ml BAG 1,000 ML IV SCH (06:00)
[2020-10-22] MEDS ORDERED: Buffered Lidocaine 1% SYRIN 1 ml INTRADERM ONE (06:00)
[2020-10-22 06:07] LABS: ABS Basophils 0.1 10^3/ul (0-0.2); ABS Eosinophils 0.1 10^3/ul (0-0.6); ABS Lymphocytes 1.8 10^3/ul (1.0-4.8); ABS Monocytes 0.6 10^3/ul (0-0.8); ABS Neutrophils 3.4 10^3/ul (1.5-7.7); Eosinophil % 1.6 %; Hematocrit 29 % (35-47); Lymphocyte % 29.6 %; Mean Corpuscular HGB Conc 34 g/dL (31-36); Mean Corpuscular Hemoglobin 34 pg (27-31); Mean Corpuscular Volume 98 fL (80-97); Mean Platelet Volume 8.2 fL (7.4-10.4); Platelet Count 168 10^3/uL (150-450); Red Blood Count 2.96 10^6 /uL (3.70-4.87); Red Cell Distribution Width 13 % (10-15); White Blood Count 5.9 10^3/uL (3.5-10.8)
[2020-10-22 06:15] LABS: Activated Partial Thrombo Time 29.8 seconds (26.0-38.0); INR 1.01 (0.86-1.15)
[2020-10-22 06:23] LABS: Calcium 8.7 mg/dL (8.6-10.3); EGFR African American 93.8 (>60); EGFR Non-African American 77.5 (>60); Potassium 3.8 mmol/L (3.5-5.0)
[2020-10-22] MEDS: Venlafaxine XR 75 mg PO SCH (08:33)
[2020-10-22] MEDS: Cholecalciferol (VIT D3) 1,000 unit TAB PO SCH (08:34)
[2020-10-22] MEDS: CMCS: Ranolazine 500 mg TAB (NF) PO SCH ×2 (08:36→19:44)
[2020-10-22] MEDS: TROSPIUM 20 MG PO SCH (08:49)
[2020-10-22] MEDS: Vitamin THERAPEUTIC TAB PO SCH (08:50)
[2020-10-22] MEDS: Lactated Ringers 1000 ml BAG 1,000 ML IV SCH (10:28)
[2020-10-22] MEDS ORDERED: Lidocaine 2% PF 5 ML VIAL ONE (13:30)
[2020-10-22] MEDS ORDERED: fentaNYL 100 mcg/2 ml 50 MCG/ML VIAL ONE (13:31)
[2020-10-22] MEDS ORDERED: Propofol 10 MG/ML 20 ML BTL ONE (13:31)
[2020-10-22] MEDS ORDERED: ceFAZolin 2 GM in NS PREMIX 2 GM/100 ML BAG IVPB ONE (14:50)
[2020-10-22] MEDS ORDERED: Lidocaine 2% PF 10 ML AMP ONE (15:06)
[2020-10-22] MEDS ORDERED: Bupivacaine 0.25% SDV 30 ML ONE (15:06)
[2020-10-22] MEDS ORDERED: Lidocaine 2% w/ EPI 1:200,000 MPF 20 ML SDV VIAL ONE (15:06)
[2020-10-22] MEDS ORDERED: Naloxone 0.4 mg VIAL 0.4 mg/ml 1 ml VIAL IV PRN (15:33)
[2020-10-22] MEDS ORDERED: HYDROmorphone 1 MG/1 ML SYRINGE IV PRN (15:33)
[2020-10-22] MEDS ORDERED: diPHENhydraMINE IV 50 MG/ML 1 ml VIAL (BENADRYL) IV PRN (15:33)
[2020-10-22] MEDS ORDERED: Prochlorperazine 5 mg/ml 2 ml VIAL (10 mg) IV PRN (15:33)
[2020-10-22] MEDS ORDERED: Dexamethasone IV 4 MG/ML VIAL 1 ml VIAL ONE (15:34)
[2020-10-22] MEDS ORDERED: EPHEDrine (Pressors) 50 MG/ML VIAL ONE (15:34)
[2020-10-22] MEDS ORDERED: Ondansetron 4 mg VIAL 2 MG/ML 2 ml VIAL ONE (15:34)
[2020-10-22] MEDS ORDERED: Acetaminophen IV 1 GM/100ML 100 ML IV ONE (15:49)
[2020-10-23] MEDS: ceFAZolin 1 GM X 3 DOSES POST-OP Q8H (AddVan) IVPB SCH ×2 (03:45→10:23)
[2020-10-23 06:14] LABS: ABS Lymphocytes 0.6 10^3/ul (1.0-4.8); ABS Monocytes 0.6 10^3/ul (0-0.8); ABS Neutrophils 5.3 10^3/ul (1.5-7.7); Hematocrit 27 % (35-47); Hemoglobin 9.4 g/dL (12.0-16.0); Lymphocyte % 9.9 %; Mean Corpuscular HGB Conc 35 g/dL (31-36); Mean Corpuscular Hemoglobin 34 pg (27-31); Mean Corpuscular Volume 96 fL (80-97); Mean Platelet Volume 8.5 fL (7.4-10.4); Platelet Count 158 10^3/uL (150-450); Red Cell Distribution Width 13 % (10-15); White Blood Count 6.6 10^3/uL (3.5-10.8)
[2020-10-23 06:30] LABS: Calcium 8.5 mg/dL (8.6-10.3); EGFR African American 88.2 (>60); EGFR Non-African American 72.9 (>60); Potassium 3.8 mmol/L (3.5-5.0)
[2020-10-23] MEDS: Vitamin THERAPEUTIC TAB PO SCH (08:58)
[2020-10-23] MEDS: CMCS: Ranolazine 500 mg TAB (NF) PO SCH (08:58)
[2020-10-23] MEDS: Venlafaxine XR 75 mg PO SCH (08:58)
[2020-10-23] MEDS: Cholecalciferol (VIT D3) 1,000 unit TAB PO SCH (08:58)
[2020-10-23] MEDS: TROSPIUM 20 MG PO SCH (09:00)
[2020-10-23 11:39] VITALS: BP 125/75
[2020-10-24] MEDS ORDERED: TROSPIUM 20 MG PO SCH (09:00)
== END 2020-10-23 16:00 | disposition home or self-care (01) | DRG 909 ==
LOC: SSU 09:55 → ED 09:55 → SUATTDRO 12:34
PROVIDERS: ADMIT Internal Medicine; ATTEND Orthopaedic Surgery

== ENCOUNTER 2020-10-26 11:23 | Observation (INO) ==
[2020-10-26 13:04] LABS: ABS Basophils 0.1 10^3/ul (0-0.2); ABS Eosinophils 0.1 10^3/ul (0-0.6); ABS Lymphocytes 1.1 10^3/ul (1.0-4.8); ABS Monocytes 0.7 10^3/ul (0-0.8); ABS Neutrophils 3.1 10^3/ul (1.5-7.7); Hematocrit 31 % (35-47); Hemoglobin 10.4 g/dL (12.0-16.0); Lymphocyte % 21.7 %; Mean Corpuscular HGB Conc 34 g/dL (31-36); Mean Corpuscular Hemoglobin 33 pg (27-31); Mean Corpuscular Volume 98 fL (80-97); Mean Platelet Volume 8.2 fL (7.4-10.4); Nucleated Red Blood Cells % 0.1; Platelet Count 275 10^3/uL (150-450); Red Blood Count 3.18 10^6 /uL (3.70-4.87); Red Cell Distribution Width 14 % (10-15)
[2020-10-26 13:20] LABS: INR 1.08 (0.86-1.15)
[2020-10-26 13:21] LABS: Albumin 3.8 g/dL (3.2-5.2); Albumin/Globulin Ratio 1.4 (1-3); Calcium 8.9 mg/dL (8.6-10.3); EGFR African American 70.7 (>60); EGFR Non-African American 58.4 (>60); Globulin 2.7 g/dL (2-4); Potassium 3.8 mmol/L (3.5-5.0); Total Bilirubin 0.5 mg/dL (0.2-1.0); Total Protein 6.5 g/dL (6.4-8.9)
[2020-10-26 13:22] LABS: Troponin I 0.01 ng/mL (<0.03)
[2020-10-26] MEDS ORDERED: Magnesium Hydroxide LIQ 30 ML UDC PO PRN (18:14)
[2020-10-26] MEDS ORDERED: guaiFENesin 100 mg/5 ml LIQ unit dose cup PO PRN (18:18)
[2020-10-26] MEDS ORDERED: Al Hydrox/Mg Hydrox/Simet LIQ 30 ML UDC PO PRN (18:25)
[2020-10-26] MEDS: CMCS:Ranolazine 500 mg TAB (NF) PO SCH (21:03)
[2020-10-27 06:05] LABS: Hematocrit 29 % (35-47); Hemoglobin 9.9 g/dL (12.0-16.0); Mean Corpuscular HGB Conc 34 g/dL (31-36); Mean Corpuscular Hemoglobin 33 pg (27-31); Mean Corpuscular Volume 98 fL (80-97); Mean Platelet Volume 7.4 fL (7.4-10.4); Platelet Count 218 10^3/uL (150-450); Red Blood Count 2.95 10^6 /uL (3.70-4.87); Red Cell Distribution Width 14 % (10-15); White Blood Count 4.4 10^3/uL (3.5-10.8)
[2020-10-27 06:22] LABS: Calcium 8.7 mg/dL (8.6-10.3); EGFR African American 78.5 (>60); EGFR Non-African American 64.9 (>60); Potassium 3.9 mmol/L (3.5-5.0)
[2020-10-27] MEDS ORDERED: Cholecalciferol (VIT D3) 1,000 unit TAB PO SCH (08:00)
[2020-10-27] MEDS ORDERED: Venlafaxine XR 75 mg PO SCH (09:00)
[2020-10-27] MEDS ORDERED: TROSPIUM 20 MG PO SCH (09:00)
[2020-10-27] MEDS ORDERED: Regadenoson 0.4 MG/5 ML SYRINGE ONE (09:05)
[2020-10-27] MEDS ORDERED: Aminophylline 25 MG/ML VIAL ONE (09:05)
[2020-10-27] MEDS: CMCS:Ranolazine 500 mg TAB (NF) PO SCH (10:32)
[2020-10-27 11:54] VITALS: BP 123/74
== END 2020-10-27 13:20 ==
LOC: ED 11:23 → MEDTELE 15:53 → INTOOBSV 15:53 → SUATTDRO 15:53
PROVIDERS: ADMIT Student in an Organized Health Care Education/Training Program; ATTEND Internal Medicine